=== PATIENT | male | born 1950 | race Two or more races ===

== ENCOUNTER 2017-08-13 20:23 | Inpatient (IN) | payer MEDICARE, OTHER ==
[~2017-08-13] VITALS: Ht 182.9 cm; Wt 133.8 kg
[2017-08-13 20:40] VITALS: BP 147/74
[2017-08-13 20:49] LABS: APPEARANCE,URINE CLEAR; KETONES,URINE NEGATIVE (NEGATIVE); LEUKOCYTE ESTERASE ,URINE 2+ (NEGATIVE); NITRITE,URINE NEGATIVE (NEGATIVE); PH,URINE 8 (4.5-8.0); PROTEIN,URINE NEGATIVE (NEGATIVE); UROBILINOGEN,URINE NORMAL MG/DL (0.0-1.0)
[2017-08-13 20:53] LABS: BACTERIA,URINE FEW /HPF; RBC,URINE 0-2 /HPF (0 - 0)
[2017-08-13 21:15] LABS: TROPONIN I < 0.30 ng/mL (<=0.30)
[2017-08-13 21:18] LABS: ALANINE AMINOTRANSFERASE 24 U/L (3-41); ASPARTATE AMINO TRANSFERASE 39 U/L (5-40); CALCIUM 9.7 mg/dL (8.6-10.2); CARBON DIOXIDE 31 mEQ/L (20-30); CHLORIDE 76 mEQ/L (98-107); GLOMERULAR FILTRATION RATE > 60 mL/min (>60); HEMOLYSIS 7; SODIUM 124 mEQ/L (135-145); TOTAL PROTEIN 8.3 g/dL (6.6-8.7)
[2017-08-13 21:20] LABS: MEAN CORPUSCULAR HEMOGLOBIN 33.6 PG (27.0-31.0); MEAN CORPUSCULAR HGB CONC 35.1 G/DL (32.0-36.0); MEAN CORPUSCULAR VOLUME 96 FL (80-99); MEAN PLATELET VOLUME 7.4 FL (6.5-10.1); PLATELET COUNT 347 K/UL (150-450); RED CELL DISTRIBUTION WIDTH 13.2 % (11.6-14.8)
--- NOTE | 2017-08-13 21:23 | Emergency Room Report ---
History of Present Illness General Chief Complaint: Altered Level of Consciousness Source: Patient, EMS Present Illness HPI 67YOM BIBEMS from home after sister called EMS that patient was altered. I spoke to sister Joy on the phone - she states he "doesnt know when to drink water, doesnt know when to urinate, cant take care of himself, under a strong medication." Patient himself not sure why he is here. Repeatedly trying to leave. States he feels fine. Has no complaints. He is alert and oriented x3. He denies chest pain, SOB, abd pain, urinary complaints, headache, rash Has a bag with all his medication including for HTN, DM, GERD. Allergies: Coded Allergies: No Known Allergies (Unverified , 08/13/17) Patient History Past Medical History: other - see hpi Past Surgical History: none Pertinent Family History: none Social History: Denies: smoking, alcohol use, drug use Immunizations: UTD Reviewed Nursing Documentation: PMH: Agreed, PSxH: Agreed Nursing Documentation-PMH Hx Hypertension: Yes Hx Diabetes: Yes Review of Systems All Other Systems: negative except mentioned in HPI Physical Exam Vital Signs Date Time Temp Pulse Resp B/P (MAP) Pulse Ox O2 Delivery O2 Flow Rate FiO2 08/13/17 20:14 99.0 96 25 152/61 92 Room Air Sp02 EP Interpretation: reviewed, normal General Appearance: normal inspection, well appearing, no apparent distress, alert, GCS 15, non-toxic, obese Head: normocephalic, atraumatic Eyes: bilateral eye PERRL, bilateral eye EOMI ENT: normal ENT inspection, hearing grossly normal, normal voice Neck: normal inspection, full range of motion, supple, no bony tend Respiratory: normal inspection, lungs clear, normal breath sounds, no respiratory distress, no retraction, no accessory muscle use, no wheezing, speaking full sentences Cardiovascular #1: regular rate, rhythm, no edema Gastrointestinal: normal inspection, normal bowel sounds, non tender, soft, no guarding, no hernia Genitourinary: no CVA tenderness Musculoskeletal: normal inspection, back normal, normal range of motion, Melinda' s Sign negative Neurologic: normal inspection, alert, oriented x3, responsive, chief engineer's helper III-XII nml as tested, motor strength/tone normal, speech normal Psychiatric: normal inspection, judgement/insight normal, mood/affect normal Skin: normal inspection, normal color, no rash Lymphatic: normal inspection, no adenopathy Medical Decision Making Medicare Attestation I Azar Pitts MD hereby attest that the medical record entry for date of service, 08/13/17 accurately reflects signatures/notations that I made in my capacity as MD when I treated/diagnosed the above listed Medicare beneficiary. I attest that this information is true, accurate and complete to the best of my knowledge. I understand that any falsification, omission, or concealment of material fact may subject me to administrative, civil, or criminal liability. This patient warrants hospital admission for extreme of age and has a condition that cannot be treated as outpatient. Diagnostic Impression: Primary Impression: Altered level of consciousness Additional Impressions: Hypokalemia Sepsis Qualified Codes: A41.9 - Sepsis, unspecified organism ER Course Utox negative Some bacteria in urine Leuks very elevated. H&h stable. CXR no PNA I doubt meningitis as patient has no focal neuro deficits, no meningismus Blood, Urine Cx pending Abx given HypoK, HypoNa on labs K repleted Patient refused ECG Endorsed for admission to [facility] at 10pm EKG Diagnostic Results Other Impression Patient refused ECG Chest X-Ray Diagnostic Results Chest X-Ray Diagnostic Results : Chest X-Ray Ordered: Yes # of Views/Limited/Complete: 1 View Indication: Other - Sepsis EP Interpretation: Yes Interpretation: no consolidation, no effusion, other - Cardiomegaly Last Vital Signs Date Time Temp Pulse Resp B/P (MAP) Pulse Ox O2 Delivery O2 Flow Rate FiO2 08/13/17 20:40 98.7 90 25 147/74 94 Room Air Status: improved Disposition: ADMITTED INPATIENT Condition: Serious AZAR PITTS M.D. Aug 13, 2017 21:22
[2017-08-13 21:26] LABS: WHITE BLOOD COUNT 27.6 K/UL (4.8-10.8)
[2017-08-13 21:28] LABS: CKMB 3.5 ng/mL (< 6.7)
[2017-08-13] MEDS ORDERED: Haloperidol 5mg/ml Inj IM ONE (21:30)
[2017-08-13] MEDS ORDERED: Cefepime HCl 2 GM in D5W 110 ML IVPB ONE (21:30)
[2017-08-13] MEDS ORDERED: LORazepam Inj 2mg/ml 1ml IM ONE (21:30)
[2017-08-13 21:34] LABS: ANION GAP 17 (5-15)
[2017-08-13 21:37] LABS: POTASSIUM 2.5 mEQ/L (3.4-4.9)
[2017-08-13] MEDS ORDERED: Cefepime 2gm ONE ×2 (21:38→22:06)
[2017-08-13 22:00] LABS: BAND NEUTROPHILS % (MANUAL) 2 % (0-8); LYMPHOCYTES % (MANUAL) 9 % (20-45); NEUTROPHILS % (MANUAL) 86 % (45-75); TOTAL CELLS COUNTED 100
[2017-08-13] MEDS ORDERED: KCl 10% 40mEq/30ml liquid NG ONE (22:00)
[2017-08-13] MEDS ORDERED: KCl 10% 40mEq/30ml liquid ORAL ONE (22:00)
[2017-08-13 22:03] LABS: BASOPHILS % (MANUAL) 0 % (0-2); EOSINOPHILS % (MANUAL) 0 % (0-3); PLATELET ESTIMATE ADEQUATE; PLATELET MORPHOLOGY NORMAL
[2017-08-13 22:39] VITALS: BP 129/71
[2017-08-13 23:45] VITALS: BP 127/64
[2017-08-13] MEDS ORDERED: Miralax 17gm pkt ORAL PRN (23:45)
[2017-08-13] MEDS ORDERED: Albuterol/Ipratropium 3ml neb HHN PRN (23:45)
[2017-08-13] MEDS ORDERED: Morphine Sulfate 2mg/ml Inj IVP PRN (23:45)
[2017-08-13] MEDS ORDERED: SIMVASTATIN40 MG ORAL (23:52)
[2017-08-13] MEDS ORDERED: ENALAPRIL MALEA10 MG ORAL (23:52)
[2017-08-13] MEDS ORDERED: NEXIUM40 MG ORAL (23:52)
[2017-08-13] MEDS ORDERED: MECLIZINE HCL12.5 MG ORAL (23:52)
[2017-08-13] MEDS ORDERED: ALLOPURINOL300 M1 ORAL (23:52)
[2017-08-13] MEDS ORDERED: AMLODIPINE-VAL1 EACH PO (23:52)
[2017-08-13] MEDS ORDERED: GABAPENTIN300 MG ORAL (23:52)
[2017-08-13] MEDS ORDERED: POTASSIUM CHLO20 ME3 PO (23:52)
[2017-08-13] MEDS ORDERED: METFORMIN HCL1000 M1 ORAL (23:52)
[2017-08-13] MEDS ORDERED: FUROSEMIDE80 M1 ORAL (23:52)
[2017-08-13] MEDS ORDERED: VITAMIN D1000 UNI1 ORAL (23:52)
[2017-08-13] MEDS ORDERED: BUMETANIDE2 MG ORAL (23:52)
[2017-08-13] MEDS ORDERED: ATORVASTATIN CA40 MG ORAL (23:52)
[2017-08-13] MEDS ORDERED: TRAZODONE HCL150 MG ORAL (23:52)
[2017-08-13] MEDS ORDERED: CREON DR 36,001 EACH PO (23:52)
[2017-08-13] MEDS ORDERED: QSYMIA 7.5 MG-1 EACH PO (23:52)
[2017-08-14] MEDS ORDERED: Vancomycin 1 GM in D5W 275 ML IV SCH (00:30)
[2017-08-14 01:10] VITALS: BP 130/73
[2017-08-14] MEDS ORDERED: Vancomycin 1gm inj IVPB ONE (01:31)
[2017-08-14] MEDS ORDERED: LORazepam Inj 2mg/ml 1ml IV PRN (01:45)
[2017-08-14] MEDS ORDERED: Vancomycin 2gm/D5W 550ml IVPB ONE ×2 (02:00)
[2017-08-14] MEDS ORDERED: Haloperidol Decanoate 50mg Inj IM PRN (05:30)
[2017-08-14] MEDS ORDERED: Haloperidol 5mg/ml Inj IM PRN (07:30)
[2017-08-14 07:44] VITALS: BP 131/75
[2017-08-14] MEDS: Heparin 5000 units/ml inj SUBQ SCH ×2 (09:07→20:33)
[2017-08-14] MEDS: Cefepime HCl 2 GM in D5W 110 ML IV SCH ×2 (09:08→20:22)
[2017-08-14 09:48] LABS: MEAN CORPUSCULAR HEMOGLOBIN 31.9 PG (27.0-31.0); MEAN CORPUSCULAR HGB CONC 33.2 G/DL (32.0-36.0); MEAN CORPUSCULAR VOLUME 96 FL (80-99); MEAN PLATELET VOLUME 7.6 FL (6.5-10.1); PLATELET COUNT 321 K/UL (150-450); RED BLOOD COUNT 4.27 M/UL (4.70-6.10); RED CELL DISTRIBUTION WIDTH 13.1 % (11.6-14.8)
[2017-08-14 09:50] LABS: WHITE BLOOD COUNT 27.6 K/UL (4.8-10.8)
[2017-08-14] MEDS ORDERED: Vancomycin 1 GM in D5W 275 ML IVPB SCH (10:00)
[2017-08-14 10:11] LABS: ALANINE AMINOTRANSFERASE 22 U/L (3-41); ALBUMIN/GLOBULIN RATIO 1.1 (1.0-2.7); ASPARTATE AMINO TRANSFERASE 39 U/L (5-40); CALCIUM 9.4 mg/dL (8.6-10.2); CARBON DIOXIDE 29 mEQ/L (20-30); CHLORIDE 79 mEQ/L (98-107); GLOMERULAR FILTRATION RATE > 60 mL/min (>60); HEMOLYSIS 0; SODIUM 126 mEQ/L (135-145); TOTAL PROTEIN 7.7 g/dL (6.6-8.7)
[2017-08-14 10:16] LABS: ANION GAP 18 (5-15)
[2017-08-14 10:18] LABS: POTASSIUM 2.5 mEQ/L (3.4-4.9)
[2017-08-14 10:20] LABS: BAND NEUTROPHILS % (MANUAL) 0 % (0-8); BASOPHILS % (MANUAL) 0 % (0-2); EOSINOPHILS % (MANUAL) 0 % (0-3); LYMPHOCYTES % (MANUAL) 9 % (20-45); NEUTROPHILS % (MANUAL) 85 % (45-75); PLATELET ESTIMATE ADEQUATE; PLATELET MORPHOLOGY NORMAL; TOTAL CELLS COUNTED 100
--- NOTE | 2017-08-14 11:31 | Diagnostic Imaging Report ---
Indication: Dyspnea Comparison: None A single view chest radiograph was obtained. Findings: The heart is enlarged. There is pulmonary vascular prominence and interstitial edema. Bones are osteopenic. Impression: Interstitial edema/CHF
[2017-08-14 11:48] VITALS: BP 126/68
--- NOTE | 2017-08-14 14:25 | Consultation ---
Consult Note Consult Note 67YOM BIBEMS from home after sister called EMS that patient was altered. I spoke to sister Joy on the phone - she states he "doesnt know when to drink water, doesnt know when to urinate, cant take care of himself, under a strong medication." Patient himself not sure why he is here. Repeatedly trying to leave. States he feels fine. Has no complaints. He is alert and oriented x3. He denies chest pain, SOB, abd pain, urinary complaints, headache, rash Has a bag with all his medication including for HTN, DM, GERD. Hx Hypertension: Yes Hx Diabetes: Yes Interviewed- examined data reviewed discussed with insole and heel stiffener/Plan Water intoxication? leading to low NA Lasix , leading to low Na and K HypoKalemia due to Lasix DM HTN Obesity Leukocytosis , etiology?? High Cholestrol HyperUrecemia 3% Saline- PO KCL PO Protonix Avoid nephrotoxics resume glucophage on medium CHO diet per orders MAIN MCMAHAN Aug 14, 2017 14:25
[2017-08-14 15:36] VITALS: BP 134/72
[2017-08-14] MEDS ORDERED: NaCl 3% 500ml 500 ML IV ONE (16:00)
--- NOTE | 2017-08-14 16:11 | Consultation ---
Consult Note Consult Note ID DIC # [id number] DEBBI ROSENBAUM M.D. Aug 14, 2017 16:11
[2017-08-14] MEDS: metFORMIN 500mg tab ORAL SCH (17:38)
[2017-08-14] MEDS: metroNIDAZOLE 500mg tab ORAL SCH (17:55)
[2017-08-14 20:00] VITALS: BP 148/73
--- NOTE | 2017-08-14 22:02 | History and Physical ---
History of Present Illness General Date patient seen: Aug 14, 2017 Reason for Hospitalization: Altered Level of Consciousness Present Illness HPI 67 year old male with hx o fHTN, DM, GERD from home brought in by paramedics after sister called EMS that patient was altered. the sister stated- she states he "doesnt know when to drink water, doesn't know when to urinate, cant take care of himself, under a strong medication." He is alert and oriented x3.. He denied chest pain, SOB, abd pain, urinary complaints, headache, rash He was found to have severe leukocytosis and admitted for further work up. Allergies: Coded Allergies: No Known Allergies (Unverified , 08/13/17) Medication History Scheduled Allopurinol* (Allopurinol*), 300 MG ORAL DAILY, (Reported) Atorvastatin Calcium* (Atorvastatin Calcium*), 40 MG ORAL BEDTIME, (Reported) Bumetanide* (Bumetanide*), 2 MG ORAL DAILY, (Reported) Cholecalciferol (Vitamin D3)* (Vitamin D*), 1,000 UNITS ORAL DAILY, (Reported) Enalapril Maleate* (Enalapril Maleate*), 10 MG ORAL EVERY 12 HOURS, (Reported) Esomeprazole Magnesium (Nexium), 40 MG ORAL DAILY, (Reported) Furosemide* (Lasix*), 80 MG ORAL DAILY, (Reported) Gabapentin* (Gabapentin*), 300 MG ORAL BID, (Reported) Meclizine Hcl* (Meclizine*), 12.5 MG ORAL BEDTIME, (Reported) Metformin Hcl* (Metformin Hcl*), 1,000 MG ORAL DAILY, (Reported) Simvastatin (Zocor), 40 MG ORAL BEDTIME, (Reported) Trazodone* (Trazodone*), 50 MG ORAL BEDTIME, (Reported) Miscellaneous Medications Amlodipine/Valsartan (Amlodipine-Valsartan 5-160 mg), 1 EACH PO, (Reported) Lipase/Protease/Amylase (Creon Dr 36,000 Units Capsule), 1 EACH PO, (Reported) Phentermine/Topiramate (Qsymia 7.5 Mg-46 Mg Capsule), 1 EACH PO, (Reported) Potassium Chloride (Potassium Chloride), 20 MEQ PO, (Reported) Patient History Healthcare decision maker Resuscitation status Full Code Advanced Directive on File Past Medical/Surgical History Past Medical/Surgical History: (1) HTN (hypertension) (2) Diabetes Review of Systems All Other Systems: negative except mentioned in HPI Physical Exam General Appearance: WD/WN Lines, tubes and drains: peripheral HEENT: normocephalic, atraumatic Neck: non-tender, normal alignment Respiratory/Chest: chest wall non-tender, lungs clear Cardiovascular/Chest: normal peripheral pulses Abdomen: non tender Genitourinary/Rectal: normal genital exam Extremities: normal range of motion Last 24 Hour Vital Signs Date Time Temp Pulse Resp B/P (MAP) Pulse Ox O2 Delivery O2 Flow Rate FiO2 08/14/17 20:00 98.6 68 22 148/73 96 Room Air 08/14/17 15:36 98.3 91 22 134/72 100 Room Air 08/14/17 11:48 97.9 100 21 126/68 100 Room Air 08/14/17 07:44 98.4 89 22 131/75 96 Room Air 08/14/17 07:30 80 16 Room Air 21 08/14/17 01:10 100.9 83 22 130/73 96 Room Air 08/14/17 00:00 91 33 121/74 95 Room Air 08/13/17 23:45 98.9 81 21 127/64 94 Room Air 08/13/17 22:39 98.2 87 32 129/71 91 Room Air Intake and Output 08/14/17 08/15/17 19:00 07:00 Intake Total 420 ml Output Total 1200 ml Balance -780 ml Intake Oral 420 ml Output Urine Total 1200 ml # Voids 7 Laboratory Tests Test 08/14/17 09:10 08/14/17 14:45 White Blood Count 27.6 K/UL (4.8-10.8) *H Red Blood Count 4.27 M/UL (4.70-6.10) L Hemoglobin 13.6 G/DL (14.2-18.0) L Hematocrit 41.0 % (42.0-52.0) L Mean Corpuscular Volume 96 FL (80-99) Mean Corpuscular Hemoglobin 31.9 PG (27.0-31.0) H Mean Corpuscular Hemoglobin Concent 33.2 G/DL (32.0-36.0) Red Cell Distribution Width 13.1 % (11.6-14.8) Platelet Count 321 K/UL (150-450) Mean Platelet Volume 7.6 FL (6.5-10.1) Neutrophils (%) (Auto) % (45.0-75.0) Lymphocytes (%) (Auto) % (20.0-45.0) Monocytes (%) (Auto) % (1.0-10.0) Eosinophils (%) (Auto) % (0.0-3.0) Basophils (%) (Auto) % (0.0-2.0) Differential Total Cells Counted 100 Neutrophils % (Manual) 85 % (45-75) H Lymphocytes % (Manual) 9 % (20-45) L Monocytes % (Manual) 6 % (1-10) Eosinophils % (Manual) 0 % (0-3) Basophils % (Manual) 0 % (0-2) Band Neutrophils 0 % (0-8) Platelet Estimate Adequate Platelet Morphology Normal Red Blood Cell Morphology Normal Sodium Level 126 mEQ/L (135-145) L Potassium Level 2.5 mEQ/L (3.4-4.9) *L Chloride Level 79 mEQ/L (98-107) L Carbon Dioxide Level 29 mEQ/L (20-30) Anion Gap 18 (5-15) H Blood Urea Nitrogen 12 mg/dL (7-23) Creatinine 1.0 mg/dL (0.7-1.2) Estimat Glomerular Filtration Rate > 60 mL/min (>60) Glucose Level 198 mg/dL (74-106) H Calcium Level 9.4 mg/dL (8.6-10.2) Total Bilirubin 0.8 mg/dL (0.0-1.2) Aspartate Amino Transf (AST/SGOT) 39 U/L (5-40) Alanine Aminotransferase (ALT/SGPT) 22 U/L (3-41) Alkaline Phosphatase 123 U/L (40-129) Total Protein 7.7 g/dL (6.6-8.7) Albumin 4.1 g/dL (3.5-5.2) Globulin 3.6 g/dL Albumin/Globulin Ratio 1.1 (1.0-2.7) Urine Osmolality 441 mOsm/kg (429-449) Urine Random Sodium 15 mmol/L Height (Feet): 6 Height (Inches): 0.00 Weight (Pounds): 295 Medications Current Medications Medications (Trade) Dose Ordered Sig/Elle Route PRN Reason Start Time Stop Time Status Last Admin Dose Admin Acetaminophen (Tylenol) 650 mg Q4H PRN ORAL fever 08/13/17 23:45 09/12/17 23:44 Albuterol/ Ipratropium (DuoNeb 0.5-3(2.5)mg/3ml) 3 ml Q4H PRN HHN Shortness of Breath 08/13/17 23:45 08/18/17 23:44 Cefepime HCl 2 gm/ Dextrose 110 ml @ 220 mls/hr Q12HR IV 08/14/17 09:00 08/21/17 08:59 08/14/17 20:22 Haloperidol Lactate (Haldol) 5 mg Q4H PRN IM Agitation 08/14/17 07:30 09/13/17 07:29 Heparin Sodium (Porcine) (Heparin 5000 units/ml) 5,000 units EVERY 12 HOURS SUBQ 08/14/17 09:00 09/13/17 08:59 08/14/17 20:33 Lorazepam (Ativan 2mg/ml 1ml) 1 mg Q4H PRN IV For Anxiety 08/14/17 01:45 08/21/17 01:44 Metformin HCl (Glucophage) 500 mg TIAC ORAL 08/14/17 16:30 09/13/17 16:29 08/14/17 17:38 Metronidazole (Flagyl) 500 mg Q8HR ORAL 08/14/17 18:00 08/21/17 17:59 08/14/17 17:55 Morphine Sulfate (Morphine Sulfate) 2 mg Q4H PRN IVP Moderate Pain (Pain Scale 4-6) 08/13/17 23:45 08/20/17 23:44 Ondansetron HCl (Zofran) 4 mg Q6H PRN IVP Nausea & Vomiting 08/13/17 23:45 09/12/17 23:44 Pantoprazole (Protonix) 40 mg EVERY 12 HOURS ORAL 08/14/17 15:00 09/13/17 14:59 08/14/17 15:07 Phenazopyridine HCl (Pyridium) 100 mg DAILY PRN ORAL dysuria 08/13/17 23:45 09/12/17 23:44 Polyethylene Glycol (Miralax) 17 gm DAILYPRN PRN ORAL Constipation 08/13/17 23:45 09/12/17 23:44 Potassium Chloride (K-Dur) 40 meq Q4H ORAL 08/14/17 15:00 08/15/17 07:01 08/14/17 17:56 Sodium Chloride 500 ml @ 30 mls/hr ONCE ONCE IV 08/14/17 16:00 08/15/17 08:39 08/14/17 17:39 Temazepam (Restoril) 15 mg HSPRN PRN ORAL Insomnia 08/13/17 23:45 08/20/17 23:44 Vitamin D (Vitamin D) 1,000 intlu DAILY ORAL 08/15/17 09:00 09/14/17 08:59 Assessment/Plan Problem List: (1) Sepsis ICD Codes: A41.9 - Sepsis, unspecified organism SNOMED: 99446666 Qualifiers: Qualified Codes: A41.9 - Sepsis, unspecified organism (2) Altered level of consciousness ICD Codes: R40.4 - Transient alteration of awareness SNOMED: 9667932 (3) Diabetes ICD Codes: E11.9 - Type 2 diabetes mellitus without complications SNOMED: 14214643 (4) HTN (hypertension) ICD Codes: I10 - Essential (primary) hypertension SNOMED: 16327271 Assessment/Plan panculture IV abx f/u wbc check electrolytes dvt prophylaxis sliding scale TETO SMITH Aug 14, 2017 22:02
[2017-08-15] VITALS: BP 136/87
--- NOTE | 2017-08-15 02:30 | Consultation ---
DATE OF CONSULTATION: 08/14/2017 INFECTIOUS DISEASE CONSULTATION CONSULTING PHYSICIAN: Ming Mitchell M.D. REFERRING PHYSICIAN: Octavio Lawson M.D. Reason For Consultation: Evaluation of the patient for fever, leukocytosis, and antibiotic management. History Of Present Illness: The patient is a 67-year-old male with multiple medical problems as listed below, who is overall a poor historian, was admitted to this medical center due to altered level of consciousness. The patient was found to be confused and labs showed the patient had abnormal electrolytes. The patient also was found to have leukocytosis and low-grade fever, and Infectious Disease consultation has been requested for further evaluation of the patient and antibiotic management. PAST MEDICAL HISTORY: 1. Hyperlipidemia. 2. Hypertension. 3. GERD. 4. Diabetes. MEDICATIONS: IV vancomycin and cefepime. ALLERGIES: No known drug allergies. SOCIAL HISTORY: The patient lives at home. FAMILY HISTORY: Noncontributory. Review Of Systems: The patient overall is a poor historian. Much of the information I was able to gather is as mentioned above. PHYSICAL EXAMINATION: Vital Signs: Temperature 98 degrees, blood pressure 154/72, pulse 86, respiratory rate 18, and T-max 100.9 degrees. HEENT: Mild pale conjunctiva. No icterus. NECK: No lymphadenopathy. CHEST: Clear. HEART: S1 and S2. ABDOMEN: Soft and obese. EXTREMITIES: No cyanosis. NEUROLOGIC: Awake and alert. Laboratory Data: White blood cells 27, hemoglobin 13, and platelets 321,000. UA unremarkable. BUN 12 and creatinine 0.1. Liver function tests are unremarkable. Chest x-ray, interstitial edema and CHF. Assessment: The patient is a 67-year-old male with multiple medical problems, as listed above, who is admitted due to: 1. Altered level of consciousness. 2. Leukocytosis, probably due to acute stress. 3. Low-grade fever, possible aspiration pneumonia. 4. Hypokalemia and hyponatremia. PLAN: 1. We will continue the patient on cefepime. 2. We will add Flagyl. 3. We will hold vancomycin. 4. Monitor CBC. 5. Monitor BMP. 6. Monitor cultures (blood and urine). 7. Monitor chest x-ray. 8. Based on the patient's clinical course and labs, we will do further recommendations. Thank you, Dr. Lawson, for allowing me to participate in the care of this patient. I will follow the patient with you during this hospitalization. Ming Mitchell M.D. DR: YOLI JOB#: [id number] CC:
[2017-08-15 04:00] VITALS: BP 126/73
[2017-08-15] MEDS: metroNIDAZOLE 500mg tab ORAL SCH ×3 (06:20→21:37)
[2017-08-15] MEDS: metFORMIN 500mg tab ORAL SCH ×3 (06:20→17:13)
[2017-08-15 07:41] VITALS: BP 135/71
[2017-08-15 08:15] LABS: MEAN CORPUSCULAR HEMOGLOBIN 32.5 PG (27.0-31.0); MEAN CORPUSCULAR HGB CONC 33.7 G/DL (32.0-36.0); MEAN CORPUSCULAR VOLUME 96 FL (80-99); MEAN PLATELET VOLUME 8.1 FL (6.5-10.1); PLATELET COUNT 287 K/UL (150-450); RED BLOOD COUNT 4.03 M/UL (4.70-6.10); WHITE BLOOD COUNT 21.8 K/UL (4.8-10.8)
[2017-08-15 08:25] LABS: ALANINE AMINOTRANSFERASE 19 U/L (3-41); ALBUMIN/GLOBULIN RATIO 0.8 (1.0-2.7); ANION GAP 14 (5-15); ASPARTATE AMINO TRANSFERASE 33 U/L (5-40); CALCIUM 9.1 mg/dL (8.6-10.2); CARBON DIOXIDE 29 mEQ/L (20-30); CHLORIDE 84 mEQ/L (98-107); CHOLESTEROL 161 mg/dL (< 200); CHOLESTEROL/HDL RATIO 4.2 (3.3-4.4); CREATININE 0.8 mg/dL (0.7-1.2); CRP QUANT 28.2 mg/dL (< 0.5); GLOMERULAR FILTRATION RATE > 60 mL/min (>60); HEMOLYSIS 0; LDL CHOLESTEROL CALC 105 mg/dL (60-99); LIPASE 22 U/L (< 60); PHOSPHORUS 1.7 mg/dL (2.5-4.8); POTASSIUM 3.1 mEQ/L (3.4-4.9); SODIUM 127 mEQ/L (135-145); TOTAL PROTEIN 7.4 g/dL (6.6-8.7)
[2017-08-15 08:39] LABS: FERRITIN 433 ng/mL (10-230)
[2017-08-15] MEDS: Vitamin D 1000 IU Tab ORAL SCH (08:55)
[2017-08-15] MEDS: Heparin 5000 units/ml inj SUBQ SCH ×2 (09:01→20:34)
[2017-08-15 09:14] LABS: HEMOGLOBIN A1C 6.3 % (< 6.0)
[2017-08-15] MEDS ORDERED: Potassium Phosphate 30 MM in Sodium Chloride 500ML 550 ML IV ONE (09:30)
[2017-08-15] MEDS ORDERED: NaCl 3% 500ml 500 ML IV ONE ×2 (09:30→17:00)
[2017-08-15 09:51] LABS: BAND NEUTROPHILS % (MANUAL) 0 % (0-8); BASOPHILS % (MANUAL) 0 % (0-2); EOSINOPHILS % (MANUAL) 0 % (0-3); LYMPHOCYTES % (MANUAL) 16 % (20-45); NEUTROPHILS % (MANUAL) 79 % (45-75); PLATELET ESTIMATE ADEQUATE; PLATELET MORPHOLOGY NORMAL; TOTAL CELLS COUNTED 100
[2017-08-15 10:01] LABS: OTHERS PATHOLOGIST COMMENT
[2017-08-15] MEDS: Cefepime HCl 2 GM in D5W 110 ML IV SCH ×2 (10:52→20:25)
--- NOTE | 2017-08-15 11:50 | General Progress Note ---
Assessment/Plan Status: stable Assessment/Plan Low Na , ? depletional Lasix , leading to low Na and K HypoKalemia due to Lasix DM HTN Obesity Leukocytosis , etiology?? High Cholestrol HyperUrecemia UTI 3% Saline- again IV K Phos PO Protonix Avoid nephrotoxics resume glucophage on medium CHO diet start on flomax per orders Subjective ROS Limited/Unobtainable: No Constitutional: Reports: other - stronger- more responsive- Allergies: Coded Allergies: No Known Allergies (Unverified , 08/13/17) Objective Last 24 Hour Vital Signs Date Time Temp Pulse Resp B/P (MAP) Pulse Ox O2 Delivery O2 Flow Rate FiO2 08/15/17 08:15 73 16 Room Air 21 08/15/17 07:41 97.7 74 20 135/71 99 Room Air 08/15/17 04:00 98.2 73 22 126/73 100 Room Air 08/15/17 00:00 98.4 68 22 136/87 100 Room Air 08/14/17 21:55 84 16 Room Air 21 08/14/17 20:00 98.6 68 22 148/73 96 Room Air 08/14/17 15:36 98.3 91 22 134/72 100 Room Air 08/14/17 11:48 97.9 100 21 126/68 100 Room Air Laboratory Tests 08/14/17 14:45: Urine Osmolality 441, Urine Random Sodium 15 08/15/17 07:50: White Blood Count 21.8H, Red Blood Count 4.03L, Hemoglobin 13.1L, Hematocrit 38.9L, Mean Corpuscular Volume 96, Mean Corpuscular Hemoglobin 32.5H, Mean Corpuscular Hemoglobin Concent 33.7, Red Cell Distribution Width 13.0, Platelet Count 287, Mean Platelet Volume 8.1, Neutrophils (%) (Auto) , Lymphocytes (%) ( Auto) , Monocytes (%) (Auto) , Eosinophils (%) (Auto) , Basophils (%) (Auto) , Differential Total Cells Counted 100, Neutrophils % (Manual) 79H, Lymphocytes % (Manual) 16L, Monocytes % (Manual) 5, Eosinophils % (Manual) 0, Basophils % ( Manual) 0, Band Neutrophils 0, Platelet Estimate Adequate, Platelet Morphology Normal, Sodium Level 127L, Potassium Level 3.1L, Chloride Level 84L, Carbon Dioxide Level 29, Anion Gap 14, Blood Urea Nitrogen 13, Creatinine 0.8, Estimat Glomerular Filtration Rate > 60, Glucose Level 132H, Hemoglobin A1c 6.3H, Uric Acid 7.0, Calcium Level 9.1, Phosphorus Level 1.7L, Magnesium Level 2.0, Ferritin 433H, Total Bilirubin 0.5, Gamma Glutamyl Transpeptidase 62H, Aspartate Amino Transf (AST/SGOT) 33, Alanine Aminotransferase (ALT/SGPT) 19, Alkaline Phosphatase 103, Total Creatine Kinase 362H, C-Reactive Protein, Quantitative 28.2H, Pro-B-Type Natriuretic Peptide 231H, Total Protein 7.4, Albumin 3.5, Globulin 3.9, Albumin/Globulin Ratio 0.8L, Triglycerides Level 91, Cholesterol Level 161, LDL Cholesterol 105H, HDL Cholesterol 38, Cholesterol/ HDL Ratio 4.2, Lipase 22, Vitamin B12 Level > 2000H, Folate [Pending], Thyroid Stimulating Hormone (TSH) 3.270 Height (Feet): 6 Height (Inches): 0.00 Weight (Pounds): 295 General Appearance: no apparent distress, lethargic Cardiovascular: normal rate Respiratory/Chest: decreased breath sounds Abdomen: soft, other - obese Edema: 1+ Arm (L), 1+ Arm (R), 1+ Leg (L), 1+ Leg (R), 1+ Pedal (L), 1+ Pedal ( R), 1+ Generalized Objective no other changes MAIN MCMAHAN Aug 15, 2017 11:50
[2017-08-15] MEDS: Tamsulosin 0.4mg cap ORAL SCH ×2 (12:01→17:13)
[2017-08-15 12:02] VITALS: BP 118/74
--- NOTE | 2017-08-15 15:39 | Cardiology Report ---
APPROVED REPORT EXAM: Two-dimensional and M-mode echocardiogram with Doppler and color Doppler. INDICATION Congestive Heart Failure M-Mode DIMENSIONS IVSd1.1 (0.7-1.1cm)Left Atrium (MM)4.4 (1.6-4.0cm) LVDd5.6 (3.5-5.6cm)Aortic Root3.4 (2.0-3.7cm) PWd1.1 (0.7-1.1cm)Aortic Cusp Exc.2.0 (1.5-2.0cm) LVDs5.3 (2.5-4.0cm) PWs0.8 cm Technically difficult study due to poor acoustic windows and patient body habitus. Normal left ventricular chamber size, systolic function and wall motion to extent visualized. Left ventricular ejection fraction estimated to be 55 %. No evidence of left ventricular hypertrophy. Anterior Echo-free space, may be due to pericardial fat or effusion. All other cardiac chamber sizes are within normal limits. Mild focal aortic valve sclerosis with adequate cusp excursion. Mildly thickened mitral valve leaflets with normal excursion. Mild mitral annulus and aortic root calcification. Pulmonic valve not well visualized. Tricuspid valve not well visualized Subcostal views not obtained. A color flow and spectral Doppler study was performed and revealed: No aortic insufficiency. No mitral regurgitation. Mitral inflow indicate normal left ventricular diastolic function. No tricuspid regurgitation. Tricuspid systolic velocities suggests peak right ventricular systolic pressure of 10 mmHg. Trace pulmonic regurgitation present.
[2017-08-15 15:44] VITALS: BP 117/78
--- NOTE | 2017-08-15 15:59 | Pulmonology Progress Note ---
Assessment/Plan Problems: (1) Sepsis (2) Altered level of consciousness (3) Diabetes (4) HTN (hypertension) Assessment/Plan f/u blood culture results wbc decreasing f/u Na f/u renal and ID recommendations Subjective ROS Limited/Unobtainable: No Constitutional: Reports: no symptoms HEENT: Repors: no symptoms Respiratory: Reports: no symptoms Allergies: Coded Allergies: No Known Allergies (Unverified , 08/13/17) Objective Last 24 Hour Vital Signs Date Time Temp Pulse Resp B/P (MAP) Pulse Ox O2 Delivery O2 Flow Rate FiO2 08/15/17 15:44 97.8 78 19 117/78 97 Room Air 08/15/17 12:02 98.4 67 19 118/74 Room Air 08/15/17 08:15 73 16 Room Air 21 08/15/17 07:41 97.7 74 20 135/71 99 Room Air 08/15/17 04:00 98.2 73 22 126/73 100 Room Air 08/15/17 00:00 98.4 68 22 136/87 100 Room Air 08/14/17 21:55 84 16 Room Air 21 08/14/17 20:00 98.6 68 22 148/73 96 Room Air Intake and Output 08/15/17 08/16/17 19:00 07:00 Intake Total 966.666 ml Output Total 1150 ml Balance -183.334 ml Intake Oral 560 ml IV Total 406.666 ml Output Urine Total 1150 ml General Appearance: WD/WN HEENT: normocephalic, atraumatic Respiratory/Chest: chest wall non-tender, lungs clear Abdomen: soft, non tender, no organomegaly Genitourinary: normal external genitalia Extremities: no clubbing Skin: no lesions, no ulcers Microbiology Date/Time Source Procedure Growth Status 08/13/17 21:45 Blood Blood Culture - Preliminary Resulted 08/13/17 21:25 Blood Blood Culture - Preliminary Resulted 08/14/17 14:45 Indwelling Cath Urine Culture - Preliminary NO GROWTH Resulted 08/13/17 20:23 Urine,Catheterized Urine Culture - Preliminary Gram Negative Bacillus 1 Resulted Laboratory Tests 08/15/17 07:50: White Blood Count 21.8H, Red Blood Count 4.03L, Hemoglobin 13.1L, Hematocrit 38.9L, Mean Corpuscular Volume 96, Mean Corpuscular Hemoglobin 32.5H, Mean Corpuscular Hemoglobin Concent 33.7, Red Cell Distribution Width 13.0, Platelet Count 287, Mean Platelet Volume 8.1, Neutrophils (%) (Auto) , Lymphocytes (%) ( Auto) , Monocytes (%) (Auto) , Eosinophils (%) (Auto) , Basophils (%) (Auto) , Differential Total Cells Counted 100, Neutrophils % (Manual) 79H, Lymphocytes % (Manual) 16L, Monocytes % (Manual) 5, Eosinophils % (Manual) 0, Basophils % ( Manual) 0, Band Neutrophils 0, Platelet Estimate Adequate, Platelet Morphology Normal, Sodium Level 127L, Potassium Level 3.1L, Chloride Level 84L, Carbon Dioxide Level 29, Anion Gap 14, Blood Urea Nitrogen 13, Creatinine 0.8, Estimat Glomerular Filtration Rate > 60, Glucose Level 132H, Hemoglobin A1c 6.3H, Uric Acid 7.0, Calcium Level 9.1, Phosphorus Level 1.7L, Magnesium Level 2.0, Ferritin 433H, Total Bilirubin 0.5, Gamma Glutamyl Transpeptidase 62H, Aspartate Amino Transf (AST/SGOT) 33, Alanine Aminotransferase (ALT/SGPT) 19, Alkaline Phosphatase 103, Total Creatine Kinase 362H, C-Reactive Protein, Quantitative 28.2H, Pro-B-Type Natriuretic Peptide 231H, Total Protein 7.4, Albumin 3.5, Globulin 3.9, Albumin/Globulin Ratio 0.8L, Triglycerides Level 91, Cholesterol Level 161, LDL Cholesterol 105H, HDL Cholesterol 38, Cholesterol/ HDL Ratio 4.2, Lipase 22, Vitamin B12 Level > 2000H, Folate [Pending], Thyroid Stimulating Hormone (TSH) 3.270 Current Medications Medications (Trade) Dose Ordered Sig/Elle Route PRN Reason Start Time Stop Time Status Last Admin Dose Admin Acetaminophen (Tylenol) 650 mg Q4H PRN ORAL fever 08/13/17 23:45 09/12/17 23:44 08/14/17 22:15 Albuterol/ Ipratropium (DuoNeb 0.5-3(2.5)mg/3ml) 3 ml Q4H PRN HHN Shortness of Breath 08/13/17 23:45 08/18/17 23:44 Cefepime HCl 2 gm/ Dextrose 110 ml @ 220 mls/hr Q12HR IV 08/14/17 09:00 08/21/17 08:59 08/15/17 10:52 Gabapentin (Neurontin) 300 mg BID ORAL 08/15/17 18:00 09/14/17 17:59 UNV Heparin Sodium (Porcine) (Heparin 5000 units/ml) 5,000 units EVERY 12 HOURS SUBQ 08/14/17 09:00 09/13/17 08:59 08/15/17 09:01 Lorazepam (Ativan 2mg/ml 1ml) 1 mg Q4H PRN IV For Anxiety 08/14/17 01:45 08/21/17 01:44 Metformin HCl (Glucophage) 500 mg TIAC ORAL 08/14/17 16:30 09/13/17 16:29 08/15/17 12:01 Metronidazole (Flagyl) 500 mg Q8HR ORAL 08/14/17 18:00 08/21/17 17:59 08/15/17 14:05 Morphine Sulfate (Morphine Sulfate) 2 mg Q4H PRN IVP Moderate Pain (Pain Scale 4-6) 08/13/17 23:45 08/20/17 23:44 Ondansetron HCl (Zofran) 4 mg Q6H PRN IVP Nausea & Vomiting 08/13/17 23:45 09/12/17 23:44 Pantoprazole (Protonix) 40 mg EVERY 12 HOURS ORAL 08/14/17 15:00 09/13/17 14:59 08/15/17 08:55 Phenazopyridine HCl (Pyridium) 100 mg DAILY PRN ORAL dysuria 08/13/17 23:45 09/12/17 23:44 Polyethylene Glycol (Miralax) 17 gm DAILYPRN PRN ORAL Constipation 08/13/17 23:45 09/12/17 23:44 Sodium Chloride 500 ml @ 30 mls/hr ONCE ONCE IV 08/15/17 17:00 08/16/17 09:39 Tamsulosin HCl (Flomax) 0.4 mg BID ORAL 08/15/17 12:00 09/14/17 11:59 08/15/17 12:01 Temazepam (Restoril) 15 mg HSPRN PRN ORAL Insomnia 08/13/17 23:45 08/20/17 23:44 Vitamin D (Vitamin D) 1,000 intlu DAILY ORAL 08/15/17 09:00 09/14/17 08:59 08/15/17 08:55 TETO SMITH Aug 15, 2017 15:59
--- NOTE | 2017-08-15 16:22 | Physician Query ---
PLEASE COMPLETE DOCUMENT BEFORE SIGNING Dear Dr. Octavio Lawson Date: July Data Operations Leader/CDS Name: JOAO Fonseca Data Operations Leader / CDS Exercise your independent professional judgment when responding to query. Question asked do not imply a particular answer is desired/expected. Clinical Documentation States: " Altered Level Of Consciousness" documented in Assessment notes of Dr. Lawson. Clinical Findings Show: Potassium= 2.5, 2.5, 3.1 Sodium= 124,126,127 WBC= 27.6, 27.6, 21.8 Please indicate the nature and chronicity of the condition below: [x] Metabolic Encephalopathy [] Toxic Encephalopathy [] Toxic - Metabolic Encephalopathy [] Progressive Encephalopathy [] Encephalopathy, Other [] Other: [] Not Applicable Severity [x] Acute [] Chronic [] Acute on Chronic [] Unable to determine Condition Present on Admission: [x] Yes [] No []Clinically Undeterminable Please also document in your Progress Notes and/or Discharge Summary and indicate if the condition was present on admission. Octavio Lawson MD Date/Time [facility] [place]
[2017-08-15 19:52] VITALS: BP 124/75
[2017-08-15] MEDS ORDERED: Tubing IV Secondary IV ONE (20:00)
[2017-08-15] MEDS ORDERED: NS 275ml ONE (20:00)
--- NOTE | 2017-08-15 20:33 | Infectious Diseases Prog Note ---
Assessment/Plan Assessment/Plan Assessment: The patient is a 67-year-old male with Altered level of consciousness. Leukocytosis, probably due to acute stress Low-grade fever possible aspiration pneumonia. Bacteremia GPC Probable UTI Ucx: GNR , SP Hypokalemia and hyponatremia Hyperlipidemia. Hypertension. GERD. Diabetes PLAN: continue the patient on cefepime and Flagyl d# 2 , add IV VAnco d# 1 Monitor CBC. Monitor BMP. Monitor cultures (blood and urine). Monitor chest x-ray. Subjective Constitutional: Denies: no symptoms, fever, chills, fatigue, anorexia, drenching sweats, other Allergies: Coded Allergies: No Known Allergies (Unverified , 08/13/17) Objective Vital Signs Last 24 Hour Vital Signs Date Time Temp Pulse Resp B/P (MAP) Pulse Ox O2 Delivery O2 Flow Rate FiO2 08/15/17 20:08 65 18 Room Air 21 08/15/17 19:52 98.2 68 20 124/75 98 Room Air 08/15/17 15:44 97.8 78 19 117/78 97 Room Air 08/15/17 12:02 98.4 67 19 118/74 Room Air 08/15/17 08:15 73 16 Room Air 21 08/15/17 07:41 97.7 74 20 135/71 99 Room Air 08/15/17 04:00 98.2 73 22 126/73 100 Room Air 08/15/17 00:00 98.4 68 22 136/87 100 Room Air 08/14/17 21:55 84 16 Room Air 21 Height (Feet): 6 Height (Inches): 0.00 Weight (Pounds): 295 HEENT: anicteric Respiratory/Chest: no accessory muscle use Cardiovascular: regularly irregular Abdomen: no organomegaly Microbiology Date/Time Source Procedure Growth Status 08/13/17 21:45 Blood Blood Culture - Preliminary Resulted 08/13/17 21:25 Blood Blood Culture - Preliminary Resulted 08/14/17 14:45 Indwelling Cath Urine Culture - Preliminary NO GROWTH Resulted 08/13/17 20:23 Urine,Catheterized Urine Culture - Preliminary Gram Negative Bacillus 1 Resulted Laboratory Tests Test 08/15/17 07:50 White Blood Count 21.8 K/UL (4.8-10.8) H Red Blood Count 4.03 M/UL (4.70-6.10) L Hemoglobin 13.1 G/DL (14.2-18.0) L Hematocrit 38.9 % (42.0-52.0) L Mean Corpuscular Volume 96 FL (80-99) Mean Corpuscular Hemoglobin 32.5 PG (27.0-31.0) H Mean Corpuscular Hemoglobin Concent 33.7 G/DL (32.0-36.0) Red Cell Distribution Width 13.0 % (11.6-14.8) Platelet Count 287 K/UL (150-450) Mean Platelet Volume 8.1 FL (6.5-10.1) Neutrophils (%) (Auto) % (45.0-75.0) Lymphocytes (%) (Auto) % (20.0-45.0) Monocytes (%) (Auto) % (1.0-10.0) Eosinophils (%) (Auto) % (0.0-3.0) Basophils (%) (Auto) % (0.0-2.0) Differential Total Cells Counted 100 Neutrophils % (Manual) 79 % (45-75) H Lymphocytes % (Manual) 16 % (20-45) L Monocytes % (Manual) 5 % (1-10) Eosinophils % (Manual) 0 % (0-3) Basophils % (Manual) 0 % (0-2) Band Neutrophils 0 % (0-8) Platelet Estimate Adequate Platelet Morphology Normal Sodium Level 127 mEQ/L (135-145) L Potassium Level 3.1 mEQ/L (3.4-4.9) L Chloride Level 84 mEQ/L (98-107) L Carbon Dioxide Level 29 mEQ/L (20-30) Anion Gap 14 (5-15) Blood Urea Nitrogen 13 mg/dL (7-23) Creatinine 0.8 mg/dL (0.7-1.2) Estimat Glomerular Filtration Rate > 60 mL/min (>60) Glucose Level 132 mg/dL (74-106) H Hemoglobin A1c 6.3 % (< 6.0) H Uric Acid 7.0 mg/dL (3.0-7.5) Calcium Level 9.1 mg/dL (8.6-10.2) Phosphorus Level 1.7 mg/dL (2.5-4.8) L Magnesium Level 2.0 mg/dL (1.7-2.5) Ferritin 433 ng/mL (10-230) H Total Bilirubin 0.5 mg/dL (0.0-1.2) Gamma Glutamyl Transpeptidase 62 U/L (8-61) H Aspartate Amino Transf (AST/SGOT) 33 U/L (5-40) Alanine Aminotransferase (ALT/SGPT) 19 U/L (3-41) Alkaline Phosphatase 103 U/L (40-129) Total Creatine Kinase 362 U/L (38-174) H C-Reactive Protein, Quantitative 28.2 mg/dL (< 0.5) H Pro-B-Type Natriuretic Peptide 231 pg/mL (0-125) H Total Protein 7.4 g/dL (6.6-8.7) Albumin 3.5 g/dL (3.5-5.2) Globulin 3.9 g/dL Albumin/Globulin Ratio 0.8 (1.0-2.7) L Triglycerides Level 91 mg/dL (< 150) Cholesterol Level 161 mg/dL (< 200) LDL Cholesterol 105 mg/dL (60-99) H HDL Cholesterol 38 mg/dL (> 60) Cholesterol/HDL Ratio 4.2 (3.3-4.4) Lipase 22 U/L (< 60) Vitamin B12 Level > 2000 pg/mL (211-946) H Folate Pending Thyroid Stimulating Hormone (TSH) 3.270 uIU/mL (0.300-4.500) Current Medications Medications (Trade) Dose Ordered Sig/Elle Route PRN Reason Start Time Stop Time Status Last Admin Dose Admin Acetaminophen (Tylenol) 650 mg Q4H PRN ORAL fever 08/13/17 23:45 09/12/17 23:44 08/14/17 22:15 Albuterol/ Ipratropium (DuoNeb 0.5-3(2.5)mg/3ml) 3 ml Q4H PRN HHN Shortness of Breath 08/13/17 23:45 08/18/17 23:44 Cefepime HCl 2 gm/ Dextrose 110 ml @ 220 mls/hr Q12HR IV 08/14/17 09:00 08/21/17 08:59 08/15/17 10:52 Gabapentin (Neurontin) 300 mg BID ORAL 08/15/17 18:00 09/14/17 17:59 08/15/17 17:13 Heparin Sodium (Porcine) (Heparin 5000 units/ml) 5,000 units EVERY 12 HOURS SUBQ 08/14/17 09:00 09/13/17 08:59 08/15/17 09:01 Lorazepam (Ativan 2mg/ml 1ml) 1 mg Q4H PRN IV For Anxiety 08/14/17 01:45 08/21/17 01:44 Metformin HCl (Glucophage) 500 mg TIAC ORAL 08/14/17 16:30 09/13/17 16:29 08/15/17 17:13 Metronidazole (Flagyl) 500 mg Q8HR ORAL 08/14/17 18:00 08/21/17 17:59 08/15/17 14:05 Morphine Sulfate (Morphine Sulfate) 2 mg Q4H PRN IVP Moderate Pain (Pain Scale 4-6) 08/13/17 23:45 08/20/17 23:44 Ondansetron HCl (Zofran) 4 mg Q6H PRN IVP Nausea & Vomiting 08/13/17 23:45 09/12/17 23:44 Pantoprazole (Protonix) 40 mg EVERY 12 HOURS ORAL 08/14/17 15:00 09/13/17 14:59 08/15/17 08:55 Phenazopyridine HCl (Pyridium) 100 mg DAILY PRN ORAL dysuria 08/13/17 23:45 09/12/17 23:44 Polyethylene Glycol (Miralax) 17 gm DAILYPRN PRN ORAL Constipation 08/13/17 23:45 09/12/17 23:44 Sodium Chloride 500 ml @ 30 mls/hr ONCE ONCE IV 08/15/17 17:00 08/16/17 09:39 08/15/17 18:23 Tamsulosin HCl (Flomax) 0.4 mg BID ORAL 08/15/17 12:00 09/14/17 11:59 08/15/17 17:13 Temazepam (Restoril) 15 mg HSPRN PRN ORAL Insomnia 08/13/17 23:45 08/20/17 23:44 Vitamin D (Vitamin D) 1,000 intlu DAILY ORAL 08/15/17 09:00 09/14/17 08:59 08/15/17 08:55 DEBBI ROSENBAUM M.D. Aug 15, 2017 20:33
[2017-08-15] MEDS: Vancomycin 1 GM in NS 275 ML IVPB SCH (21:38)
[2017-08-16 00:30] VITALS: BP 122/70
[2017-08-16 04:30] VITALS: BP 126/72
[2017-08-16] MEDS: metroNIDAZOLE 500mg tab ORAL SCH ×3 (06:12→22:09)
[2017-08-16] MEDS: metFORMIN 500mg tab ORAL SCH ×3 (06:12→17:09)
[2017-08-16] MEDS: Vancomycin 1 GM in NS 275 ML IVPB SCH ×3 (06:13→22:09)
[2017-08-16 07:26] LABS: BASOPHILS % (AUTO) 0.6 % (0.0-2.0); EOSINOPHILS % (AUTO) 1.8 % (0.0-3.0); LYMPHOCYTES % (AUTO) 20.5 % (20.0-45.0); MEAN CORPUSCULAR HEMOGLOBIN 32.5 PG (27.0-31.0); MEAN CORPUSCULAR HGB CONC 33.6 G/DL (32.0-36.0); MEAN CORPUSCULAR VOLUME 97 FL (80-99); MEAN PLATELET VOLUME 8.2 FL (6.5-10.1); MONOCYTES % (AUTO) 3.9 % (1.0-10.0); NEUTROPHILS % (AUTO) 73.3 % (45.0-75.0); PLATELET COUNT 263 K/UL (150-450); RED BLOOD COUNT 3.45 M/UL (4.70-6.10); RED CELL DISTRIBUTION WIDTH 13.5 % (11.6-14.8); WHITE BLOOD COUNT 14.5 K/UL (4.8-10.8)
[2017-08-16 08:00] VITALS: BP 140/77
[2017-08-16 08:09] LABS: ALANINE AMINOTRANSFERASE 21 U/L (3-41); ALBUMIN/GLOBULIN RATIO 0.9 (1.0-2.7); ANION GAP 14 (5-15); ASPARTATE AMINO TRANSFERASE 35 U/L (5-40); CALCIUM 8.6 mg/dL (8.6-10.2); CARBON DIOXIDE 27 mEQ/L (20-30); CHLORIDE 91 mEQ/L (98-107); CREATININE 0.8 mg/dL (0.7-1.2); CRP QUANT 14.1 mg/dL (< 0.5); GLOMERULAR FILTRATION RATE > 60 mL/min (>60); HEMOLYSIS 0; MAGNESIUM 1.8 mg/dL (1.7-2.5); PHOSPHORUS 1.7 mg/dL (2.5-4.8); POTASSIUM 3.1 mEQ/L (3.4-4.9); SODIUM 132 mEQ/L (135-145); TOTAL PROTEIN 6.3 g/dL (6.6-8.7); URIC ACID 6.2 mg/dL (3.0-7.5)
[2017-08-16] MEDS: Tamsulosin 0.4mg cap ORAL SCH ×2 (09:39→18:05)
[2017-08-16] MEDS: Vitamin D 1000 IU Tab ORAL SCH (09:39)
[2017-08-16] MEDS: Cefepime HCl 2 GM in D5W 110 ML IV SCH ×2 (09:39→20:40)
[2017-08-16] MEDS: Heparin 5000 units/ml inj SUBQ SCH ×2 (09:41→20:39)
[2017-08-16] MEDS ORDERED: Potassium Phosphate 30 MM in NS 275 ML IV ONE (10:30)
[2017-08-16] MEDS ORDERED: Phospha 250 Neutral tab ORAL ONE (11:30)
--- NOTE | 2017-08-16 11:30 | General Progress Note ---
Assessment/Plan Status: doing well Status Narrative WBCs lower Assessment/Plan Low Na , ? depletional Lasix , leading to low Na and K HypoKalemia due to Lasix DM HTN Obesity Leukocytosis , etiology?? High Cholestrol HyperUrecemia UTI 3% Saline- again IV K Phos and added PO K and Phos PO Protonix Avoid nephrotoxics On glucophage on medium CHO diet start on flomax per orders Subjective ROS Limited/Unobtainable: No Constitutional: Reports: other - improving Allergies: Coded Allergies: No Known Allergies (Unverified , 08/13/17) Objective Last 24 Hour Vital Signs Date Time Temp Pulse Resp B/P (MAP) Pulse Ox O2 Delivery O2 Flow Rate FiO2 08/16/17 08:02 72 18 Room Air 21 08/16/17 08:00 96.0 74 17 140/77 99 Room Air 08/16/17 04:30 97.0 66 28 126/72 96 Room Air 08/16/17 00:30 98.2 23 122/70 99 Room Air 08/15/17 20:08 65 18 Room Air 21 08/15/17 19:52 98.2 68 20 124/75 98 Room Air 08/15/17 15:44 97.8 78 19 117/78 97 Room Air 08/15/17 12:02 98.4 67 19 118/74 Room Air Laboratory Tests 08/16/17 04:45: White Blood Count 14.5H, Red Blood Count 3.45L, Hemoglobin 11.2L, Hematocrit 33.4L, Mean Corpuscular Volume 97, Mean Corpuscular Hemoglobin 32.5H, Mean Corpuscular Hemoglobin Concent 33.6, Red Cell Distribution Width 13.5, Platelet Count 263, Mean Platelet Volume 8.2, Neutrophils (%) (Auto) 73.3, Lymphocytes (% ) (Auto) 20.5, Monocytes (%) (Auto) 3.9, Eosinophils (%) (Auto) 1.8, Basophils ( %) (Auto) 0.6, Sodium Level 132L, Potassium Level 3.1L, Chloride Level 91L, Carbon Dioxide Level 27, Anion Gap 14, Blood Urea Nitrogen 12, Creatinine 0.8, Estimat Glomerular Filtration Rate > 60, Glucose Level 149H, Uric Acid 6.2, Calcium Level 8.6, Phosphorus Level 1.7L, Magnesium Level 1.8, Total Bilirubin 0.2, Gamma Glutamyl Transpeptidase 57, Aspartate Amino Transf (AST/SGOT) 35, Alanine Aminotransferase (ALT/SGPT) 21, Alkaline Phosphatase 96, C-Reactive Protein, Quantitative 14.1H, Pro-B-Type Natriuretic Peptide 610H, Total Protein 6.3L, Albumin 3.1L, Globulin 3.2, Albumin/Globulin Ratio 0.9L Height (Feet): 6 Height (Inches): 0.00 Weight (Pounds): 295 General Appearance: no apparent distress Objective no other changes MAIN MCMAHAN Aug 16, 2017 11:30
[2017-08-16 12:00] VITALS: BP 101/63
[2017-08-16] MEDS ORDERED: NaCl 3% 500ml 500 ML IV ONE (13:00)
--- NOTE | 2017-08-16 14:28 | Pulmonology Progress Note ---
Assessment/Plan Problems: (1) Sepsis (2) Altered level of consciousness (3) Diabetes (4) HTN (hypertension) Assessment/Plan f/u blood culture results, GPC, sensitivy pending wbc decreasing f/u Na f/u renal and ID recommendations afebrile Subjective ROS Limited/Unobtainable: No Interval Events: feeling better Allergies: Coded Allergies: No Known Allergies (Unverified , 08/13/17) Objective Last 24 Hour Vital Signs Date Time Temp Pulse Resp B/P (MAP) Pulse Ox O2 Delivery O2 Flow Rate FiO2 08/16/17 12:00 98.1 64 18 101/63 97 Room Air 08/16/17 08:02 72 18 Room Air 21 08/16/17 08:00 96.0 74 17 140/77 99 Room Air 08/16/17 04:30 97.0 66 28 126/72 96 Room Air 08/16/17 00:30 98.2 23 122/70 99 Room Air 08/15/17 20:08 65 18 Room Air 21 08/15/17 19:52 98.2 68 20 124/75 98 Room Air 08/15/17 15:44 97.8 78 19 117/78 97 Room Air General Appearance: WD/WN HEENT: normocephalic, atraumatic Respiratory/Chest: chest wall non-tender, lungs clear Cardiovascular: normal peripheral pulses, normal rate Abdomen: normal bowel sounds, soft, non tender Genitourinary: normal external genitalia Extremities: no cyanosis Skin: no rash Neurologic/Psychiatric: drainman II-XII grossly normal Lymphatic: no neck adenopathy Microbiology Date/Time Source Procedure Growth Status 08/13/17 21:45 Blood Blood Culture - Preliminary Strep Species, Alpha Hemolytic Staphylococcus Sp Coag Neg Resulted 08/13/17 21:25 Blood Blood Culture - Preliminary Gram Positive Cocci Staphylococcus Sp Coag Neg Resulted 08/14/17 14:45 Indwelling Cath Urine Culture - Preliminary NO GROWTH AFTER 24 HOURS Resulted 08/13/17 20:23 Urine,Catheterized Urine Culture - Final Escherichia Coli Complete Laboratory Tests 08/16/17 04:45: White Blood Count 14.5H, Red Blood Count 3.45L, Hemoglobin 11.2L, Hematocrit 33.4L, Mean Corpuscular Volume 97, Mean Corpuscular Hemoglobin 32.5H, Mean Corpuscular Hemoglobin Concent 33.6, Red Cell Distribution Width 13.5, Platelet Count 263, Mean Platelet Volume 8.2, Neutrophils (%) (Auto) 73.3, Lymphocytes (% ) (Auto) 20.5, Monocytes (%) (Auto) 3.9, Eosinophils (%) (Auto) 1.8, Basophils ( %) (Auto) 0.6, Sodium Level 132L, Potassium Level 3.1L, Chloride Level 91L, Carbon Dioxide Level 27, Anion Gap 14, Blood Urea Nitrogen 12, Creatinine 0.8, Estimat Glomerular Filtration Rate > 60, Glucose Level 149H, Uric Acid 6.2, Calcium Level 8.6, Phosphorus Level 1.7L, Magnesium Level 1.8, Total Bilirubin 0.2, Gamma Glutamyl Transpeptidase 57, Aspartate Amino Transf (AST/SGOT) 35, Alanine Aminotransferase (ALT/SGPT) 21, Alkaline Phosphatase 96, C-Reactive Protein, Quantitative 14.1H, Pro-B-Type Natriuretic Peptide 610H, Total Protein 6.3L, Albumin 3.1L, Globulin 3.2, Albumin/Globulin Ratio 0.9L Current Medications Medications (Trade) Dose Ordered Sig/Elle Route PRN Reason Start Time Stop Time Status Last Admin Dose Admin Acetaminophen (Tylenol) 650 mg Q4H PRN ORAL fever 08/13/17 23:45 09/12/17 23:44 08/15/17 21:47 Albuterol/ Ipratropium (DuoNeb 0.5-3(2.5)mg/3ml) 3 ml Q4H PRN HHN Shortness of Breath 08/13/17 23:45 08/18/17 23:44 Cefepime HCl 2 gm/ Dextrose 110 ml @ 220 mls/hr Q12HR IV 08/14/17 09:00 08/21/17 08:59 08/16/17 09:39 Gabapentin (Neurontin) 300 mg BID ORAL 08/15/17 18:00 09/14/17 17:59 08/16/17 09:39 Heparin Sodium (Porcine) (Heparin 5000 units/ml) 5,000 units EVERY 12 HOURS SUBQ 08/14/17 09:00 09/13/17 08:59 08/16/17 09:41 Lorazepam (Ativan 2mg/ml 1ml) 1 mg Q4H PRN IV For Anxiety 08/14/17 01:45 08/21/17 01:44 Metformin HCl (Glucophage) 500 mg TIAC ORAL 08/14/17 16:30 09/13/17 16:29 08/16/17 11:14 Metronidazole (Flagyl) 500 mg Q8HR ORAL 08/14/17 18:00 08/21/17 17:59 08/16/17 06:12 Morphine Sulfate (Morphine Sulfate) 2 mg Q4H PRN IVP Moderate Pain (Pain Scale 4-6) 08/13/17 23:45 08/20/17 23:44 Ondansetron HCl (Zofran) 4 mg Q6H PRN IVP Nausea & Vomiting 08/13/17 23:45 09/12/17 23:44 Pantoprazole (Protonix) 40 mg EVERY 12 HOURS ORAL 08/14/17 15:00 09/13/17 14:59 08/16/17 09:39 Polyethylene Glycol (Miralax) 17 gm DAILYPRN PRN ORAL Constipation 08/13/17 23:45 09/12/17 23:44 Potassium Phosphate 30 mm/ Sodium Chloride 285 ml @ 47.5 mls/hr ONCE ONCE IV 08/16/17 10:30 08/16/17 16:29 08/16/17 11:14 Sodium Chloride 500 ml @ 30 mls/hr ONCE ONCE IV 08/16/17 13:00 08/17/17 05:39 Tamsulosin HCl (Flomax) 0.4 mg BID ORAL 08/15/17 12:00 09/14/17 11:59 08/16/17 09:39 Temazepam (Restoril) 15 mg HSPRN PRN ORAL Insomnia 08/13/17 23:45 08/20/17 23:44 Vancomycin HCl (Vanco rx to dose) 1 ea DAILY PRN MISC Per rx protocol 08/15/17 20:45 09/14/17 20:44 Vancomycin HCl 1 gm/Sodium Chloride 275 ml @ 183.708 mls/hr Q8H IVPB 08/15/17 22:00 08/20/17 21:59 08/16/17 06:13 Vitamin D (Vitamin D) 1,000 intlu DAILY ORAL 08/15/17 09:00 09/14/17 08:59 08/16/17 09:39 TETO SMITH Aug 16, 2017 14:28
[2017-08-16 15:20] VITALS: BP 109/63
[2017-08-16 20:00] VITALS: BP 117/66
--- NOTE | 2017-08-16 20:03 | Infectious Diseases Prog Note ---
Assessment/Plan Assessment/Plan Assessment: The patient is a 67-year-old male with Altered level of consciousness. Leukocytosis, probably due to acute stress vs UTI improving Low-grade fever , SP possible aspiration pneumonia. Bacteremia strp and CoNS ( m/l contaminant ) Probable UTI Ucx: EColi SP Hypokalemia and hyponatremia Hyperlipidemia. Hypertension. GERD. Diabetes PLAN: continue the patient on cefepime and Flagyl d# 3 , add IV VAnco d# 2 , if TTE neg for Veg , may DC pt w cont of Augmentin x 10 d Monitor CBC. Monitor BMP. Monitor cultures (blood and urine). Monitor chest x-ray. Echo : P Subjective Constitutional: Denies: no symptoms, fever, chills, fatigue, anorexia, drenching sweats, other Allergies: Coded Allergies: No Known Allergies (Unverified , 08/13/17) Objective Vital Signs Last 24 Hour Vital Signs Date Time Temp Pulse Resp B/P (MAP) Pulse Ox O2 Delivery O2 Flow Rate FiO2 08/16/17 15:20 97.9 62 20 109/63 99 Room Air 08/16/17 12:00 98.1 64 18 101/63 97 Room Air 08/16/17 08:02 72 18 Room Air 21 08/16/17 08:00 96.0 74 17 140/77 99 Room Air 08/16/17 04:30 97.0 66 28 126/72 96 Room Air 08/16/17 00:30 98.2 23 122/70 99 Room Air 08/15/17 20:08 65 18 Room Air 21 Height (Feet): 6 Height (Inches): 0.00 Weight (Pounds): 295 HEENT: anicteric Respiratory/Chest: no accessory muscle use Cardiovascular: regular rhythm Abdomen: soft, non tender Microbiology Date/Time Source Procedure Growth Status 08/13/17 21:45 Blood Blood Culture - Preliminary Strep Species, Alpha Hemolytic Staphylococcus Sp Coag Neg Resulted 08/13/17 21:25 Blood Blood Culture - Preliminary Gram Positive Cocci Staphylococcus Sp Coag Neg Resulted 08/14/17 14:45 Indwelling Cath Urine Culture - Preliminary NO GROWTH AFTER 24 HOURS Resulted 08/13/17 20:23 Urine,Catheterized Urine Culture - Final Escherichia Coli Complete Laboratory Tests Test 08/16/17 04:45 White Blood Count 14.5 K/UL (4.8-10.8) H Red Blood Count 3.45 M/UL (4.70-6.10) L Hemoglobin 11.2 G/DL (14.2-18.0) L Hematocrit 33.4 % (42.0-52.0) L Mean Corpuscular Volume 97 FL (80-99) Mean Corpuscular Hemoglobin 32.5 PG (27.0-31.0) H Mean Corpuscular Hemoglobin Concent 33.6 G/DL (32.0-36.0) Red Cell Distribution Width 13.5 % (11.6-14.8) Platelet Count 263 K/UL (150-450) Mean Platelet Volume 8.2 FL (6.5-10.1) Neutrophils (%) (Auto) 73.3 % (45.0-75.0) Lymphocytes (%) (Auto) 20.5 % (20.0-45.0) Monocytes (%) (Auto) 3.9 % (1.0-10.0) Eosinophils (%) (Auto) 1.8 % (0.0-3.0) Basophils (%) (Auto) 0.6 % (0.0-2.0) Sodium Level 132 mEQ/L (135-145) L Potassium Level 3.1 mEQ/L (3.4-4.9) L Chloride Level 91 mEQ/L (98-107) L Carbon Dioxide Level 27 mEQ/L (20-30) Anion Gap 14 (5-15) Blood Urea Nitrogen 12 mg/dL (7-23) Creatinine 0.8 mg/dL (0.7-1.2) Estimat Glomerular Filtration Rate > 60 mL/min (>60) Glucose Level 149 mg/dL (74-106) H Uric Acid 6.2 mg/dL (3.0-7.5) Calcium Level 8.6 mg/dL (8.6-10.2) Phosphorus Level 1.7 mg/dL (2.5-4.8) L Magnesium Level 1.8 mg/dL (1.7-2.5) Total Bilirubin 0.2 mg/dL (0.0-1.2) Gamma Glutamyl Transpeptidase 57 U/L (8-61) Aspartate Amino Transf (AST/SGOT) 35 U/L (5-40) Alanine Aminotransferase (ALT/SGPT) 21 U/L (3-41) Alkaline Phosphatase 96 U/L (40-129) C-Reactive Protein, Quantitative 14.1 mg/dL (< 0.5) H Pro-B-Type Natriuretic Peptide 610 pg/mL (0-125) H Total Protein 6.3 g/dL (6.6-8.7) L Albumin 3.1 g/dL (3.5-5.2) L Globulin 3.2 g/dL Albumin/Globulin Ratio 0.9 (1.0-2.7) L Current Medications Medications (Trade) Dose Ordered Sig/Elle Route PRN Reason Start Time Stop Time Status Last Admin Dose Admin Acetaminophen (Tylenol) 650 mg Q4H PRN ORAL fever 08/13/17 23:45 09/12/17 23:44 08/15/17 21:47 Albuterol/ Ipratropium (DuoNeb 0.5-3(2.5)mg/3ml) 3 ml Q4H PRN HHN Shortness of Breath 08/13/17 23:45 08/18/17 23:44 Cefepime HCl 2 gm/ Dextrose 110 ml @ 220 mls/hr Q12HR IV 08/14/17 09:00 08/21/17 08:59 08/16/17 09:39 Gabapentin (Neurontin) 300 mg BID ORAL 08/15/17 18:00 09/14/17 17:59 08/16/17 18:05 Heparin Sodium (Porcine) (Heparin 5000 units/ml) 5,000 units EVERY 12 HOURS SUBQ 08/14/17 09:00 09/13/17 08:59 08/16/17 09:41 Lorazepam (Ativan 2mg/ml 1ml) 1 mg Q4H PRN IV For Anxiety 08/14/17 01:45 08/21/17 01:44 Metformin HCl (Glucophage) 500 mg TIAC ORAL 08/14/17 16:30 09/13/17 16:29 08/16/17 17:09 Metronidazole (Flagyl) 500 mg Q8HR ORAL 08/14/17 18:00 08/21/17 17:59 08/16/17 15:54 Morphine Sulfate (Morphine Sulfate) 2 mg Q4H PRN IVP Moderate Pain (Pain Scale 4-6) 08/13/17 23:45 08/20/17 23:44 Ondansetron HCl (Zofran) 4 mg Q6H PRN IVP Nausea & Vomiting 08/13/17 23:45 09/12/17 23:44 Pantoprazole (Protonix) 40 mg EVERY 12 HOURS ORAL 08/14/17 15:00 09/13/17 14:59 08/16/17 09:39 Polyethylene Glycol (Miralax) 17 gm DAILYPRN PRN ORAL Constipation 08/13/17 23:45 09/12/17 23:44 Sodium Chloride 500 ml @ 30 mls/hr ONCE ONCE IV 08/16/17 13:00 08/17/17 05:39 08/16/17 17:08 Tamsulosin HCl (Flomax) 0.4 mg BID ORAL 08/15/17 12:00 09/14/17 11:59 08/16/17 18:05 Temazepam (Restoril) 15 mg HSPRN PRN ORAL Insomnia 08/13/17 23:45 08/20/17 23:44 Vancomycin HCl (Vanco rx to dose) 1 ea DAILY PRN MISC Per rx protocol 08/15/17 20:45 09/14/17 20:44 Vancomycin HCl 1 gm/Sodium Chloride 275 ml @ 183.708 mls/hr Q8H IVPB 08/15/17 22:00 08/20/17 21:59 08/16/17 17:06 Vitamin D (Vitamin D) 1,000 intlu DAILY ORAL 08/15/17 09:00 09/14/17 08:59 08/16/17 09:39 DEBBI ROSENBAUM M.D. Aug 16, 2017 20:03
[2017-08-17] VITALS: BP 108/64
[2017-08-17 03:14] VITALS: BP 117/66
[2017-08-17 04:00] VITALS: BP 125/65
[2017-08-17] MEDS: metroNIDAZOLE 500mg tab ORAL SCH ×2 (06:02→14:10)
[2017-08-17] MEDS: metFORMIN 500mg tab ORAL SCH ×2 (06:02→10:56)
[2017-08-17] MEDS: Vancomycin 1 GM in NS 275 ML IVPB SCH ×2 (06:03→14:10)
[2017-08-17 07:24] LABS: BASOPHILS % (AUTO) 0.7 % (0.0-2.0); LYMPHOCYTES % (AUTO) 25.1 % (20.0-45.0); MEAN CORPUSCULAR HEMOGLOBIN 32.3 PG (27.0-31.0); MEAN CORPUSCULAR HGB CONC 33.1 G/DL (32.0-36.0); MEAN CORPUSCULAR VOLUME 97 FL (80-99); MEAN PLATELET VOLUME 7.4 FL (6.5-10.1); MONOCYTES % (AUTO) 4.9 % (1.0-10.0); NEUTROPHILS % (AUTO) 66.3 % (45.0-75.0); PLATELET COUNT 264 K/UL (150-450); RED BLOOD COUNT 3.46 M/UL (4.70-6.10); RED CELL DISTRIBUTION WIDTH 13.6 % (11.6-14.8); WHITE BLOOD COUNT 11.6 K/UL (4.8-10.8)
[2017-08-17 07:43] LABS: ALANINE AMINOTRANSFERASE 20 U/L (3-41); ALBUMIN/GLOBULIN RATIO 1.1 (1.0-2.7); ANION GAP 12 (5-15); ASPARTATE AMINO TRANSFERASE 29 U/L (5-40); CALCIUM 8.6 mg/dL (8.6-10.2); CARBON DIOXIDE 25 mEQ/L (20-30); CHLORIDE 96 mEQ/L (98-107); CREATININE 0.8 mg/dL (0.7-1.2); CRP QUANT 6.8 mg/dL (< 0.5); GLOMERULAR FILTRATION RATE > 60 mL/min (>60); HEMOLYSIS 3; MAGNESIUM 1.5 mg/dL (1.7-2.5); POTASSIUM 3.9 mEQ/L (3.4-4.9); SODIUM 133 mEQ/L (135-145); TOTAL PROTEIN 6.1 g/dL (6.6-8.7); URIC ACID 5.4 mg/dL (3.0-7.5)
[2017-08-17 08:16] VITALS: BP 156/82
[2017-08-17] MEDS: Tamsulosin 0.4mg cap ORAL SCH (08:30)
[2017-08-17] MEDS: Cefepime HCl 2 GM in D5W 110 ML IV SCH (08:30)
[2017-08-17] MEDS: Vitamin D 1000 IU Tab ORAL SCH (08:30)
[2017-08-17] MEDS: Heparin 5000 units/ml inj SUBQ SCH (08:32)
[2017-08-17] MEDS ORDERED: Promethazine/Codeine 5ml UD ORAL PRN (09:45)
[2017-08-17 11:29] VITALS: BP 146/76
--- NOTE | 2017-08-17 12:36 | General Progress Note ---
Assessment/Plan Status: stable Assessment/Plan Low Na , ? depletional Lasix , leading to low Na and K HypoKalemia due to Lasix DM HTN Obesity Leukocytosis , etiology?? High Cholestrol HyperUrecemia UTI Po Phos and Mag Po fluid restriction PO Protonix Avoid nephrotoxics On glucophage on medium CHO diet on flomax per orders DC planning??? Subjective ROS Limited/Unobtainable: No Constitutional: Reports: malaise, weakness Allergies: Coded Allergies: No Known Allergies (Unverified , 08/13/17) Objective Last 24 Hour Vital Signs Date Time Temp Pulse Resp B/P (MAP) Pulse Ox O2 Delivery O2 Flow Rate FiO2 08/17/17 11:29 98.1 58 18 146/76 98 Room Air 08/17/17 08:16 97.5 62 18 156/82 97 Room Air 08/17/17 07:24 85 20 Room Air 21 08/17/17 04:00 98.0 59 20 125/65 98 Room Air 08/17/17 03:14 Nasal Cannula 08/17/17 00:00 98.1 59 18 108/64 95 Room Air 08/16/17 20:00 98.4 58 18 117/66 96 Room Air 08/16/17 19:38 81 20 Room Air 21 08/16/17 15:20 97.9 62 20 109/63 99 Room Air Laboratory Tests 08/16/17 21:10: Vancomycin Level Trough 17.4H 08/17/17 04:35: White Blood Count 11.6H, Red Blood Count 3.46L, Hemoglobin 11.2L, Hematocrit 33.7L, Mean Corpuscular Volume 97, Mean Corpuscular Hemoglobin 32.3H, Mean Corpuscular Hemoglobin Concent 33.1, Red Cell Distribution Width 13.6, Platelet Count 264, Mean Platelet Volume 7.4, Neutrophils (%) (Auto) 66.3, Lymphocytes (% ) (Auto) 25.1, Monocytes (%) (Auto) 4.9, Eosinophils (%) (Auto) 3.0, Basophils ( %) (Auto) 0.7, Sodium Level 133L, Potassium Level 3.9, Chloride Level 96L, Carbon Dioxide Level 25, Anion Gap 12, Blood Urea Nitrogen 10, Creatinine 0.8, Estimat Glomerular Filtration Rate > 60, Glucose Level 140H, Uric Acid 5.4, Calcium Level 8.6, Phosphorus Level 2.0L, Magnesium Level 1.5L, Total Bilirubin 0.2, Aspartate Amino Transf (AST/SGOT) 29, Alanine Aminotransferase (ALT/SGPT) 20, Alkaline Phosphatase 84, C-Reactive Protein, Quantitative 6.8H, Pro-B-Type Natriuretic Peptide 1025H, Total Protein 6.1L, Albumin 3.2L, Globulin 2.9, Albumin/Globulin Ratio 1.1 Height (Feet): 6 Height (Inches): 0.00 Weight (Pounds): 295 General Appearance: no apparent distress Edema: 1+ Arm (L), 1+ Arm (R), 1+ Leg (L), 1+ Leg (R), 1+ Pedal (L), 1+ Pedal ( R), 1+ Generalized Objective no other changes MAIN MCMAHAN Aug 17, 2017 12:36
[2017-08-17] MEDS ORDERED: Magnesium Oxide 400mg tab ORAL SCH (13:00)
[2017-08-17] MEDS ORDERED: Phospha 250 Neutral tab ORAL SCH (13:00)
[2017-08-17] MEDS ORDERED: AUGMENTIN 875-1 EAC1 ORAL (13:13)
[2017-08-17] MEDS ORDERED: Heparin 5000 units/ml inj SUBQ SCH (14:00)
--- NOTE | 2017-08-17 14:19 | Cardiology Progress Note ---
Assessment/Plan Assessment/Plan [id number] Objective Last 24 Hour Vital Signs Date Time Temp Pulse Resp B/P (MAP) Pulse Ox O2 Delivery O2 Flow Rate FiO2 08/17/17 11:29 98.1 58 18 146/76 98 Room Air 08/17/17 08:16 97.5 62 18 156/82 97 Room Air 08/17/17 07:24 85 20 Room Air 21 08/17/17 04:00 98.0 59 20 125/65 98 Room Air 08/17/17 03:14 Nasal Cannula 08/17/17 00:00 98.1 59 18 108/64 95 Room Air 08/16/17 20:00 98.4 58 18 117/66 96 Room Air 08/16/17 19:38 81 20 Room Air 21 08/16/17 15:20 97.9 62 20 109/63 99 Room Air Laboratory Tests Test 08/16/17 21:10 08/17/17 04:35 Vancomycin Level Trough 17.4 ug/mL (5.0-12.0) H White Blood Count 11.6 K/UL (4.8-10.8) H Red Blood Count 3.46 M/UL (4.70-6.10) L Hemoglobin 11.2 G/DL (14.2-18.0) L Hematocrit 33.7 % (42.0-52.0) L Mean Corpuscular Volume 97 FL (80-99) Mean Corpuscular Hemoglobin 32.3 PG (27.0-31.0) H Mean Corpuscular Hemoglobin Concent 33.1 G/DL (32.0-36.0) Red Cell Distribution Width 13.6 % (11.6-14.8) Platelet Count 264 K/UL (150-450) Mean Platelet Volume 7.4 FL (6.5-10.1) Neutrophils (%) (Auto) 66.3 % (45.0-75.0) Lymphocytes (%) (Auto) 25.1 % (20.0-45.0) Monocytes (%) (Auto) 4.9 % (1.0-10.0) Eosinophils (%) (Auto) 3.0 % (0.0-3.0) Basophils (%) (Auto) 0.7 % (0.0-2.0) Sodium Level 133 mEQ/L (135-145) L Potassium Level 3.9 mEQ/L (3.4-4.9) Chloride Level 96 mEQ/L (98-107) L Carbon Dioxide Level 25 mEQ/L (20-30) Anion Gap 12 (5-15) Blood Urea Nitrogen 10 mg/dL (7-23) Creatinine 0.8 mg/dL (0.7-1.2) Estimat Glomerular Filtration Rate > 60 mL/min (>60) Glucose Level 140 mg/dL (74-106) H Uric Acid 5.4 mg/dL (3.0-7.5) Calcium Level 8.6 mg/dL (8.6-10.2) Phosphorus Level 2.0 mg/dL (2.5-4.8) L Magnesium Level 1.5 mg/dL (1.7-2.5) L Total Bilirubin 0.2 mg/dL (0.0-1.2) Aspartate Amino Transf (AST/SGOT) 29 U/L (5-40) Alanine Aminotransferase (ALT/SGPT) 20 U/L (3-41) Alkaline Phosphatase 84 U/L (40-129) C-Reactive Protein, Quantitative 6.8 mg/dL (< 0.5) H Pro-B-Type Natriuretic Peptide 1025 pg/mL (0-125) H Total Protein 6.1 g/dL (6.6-8.7) L Albumin 3.2 g/dL (3.5-5.2) L Globulin 2.9 g/dL Albumin/Globulin Ratio 1.1 (1.0-2.7) Microbiology Date/Time Source Procedure Growth Status 08/15/17 21:00 Blood Blood Culture - Preliminary NO GROWTH AFTER 24 HOURS Resulted 08/15/17 20:55 Blood Blood Culture - Preliminary NO GROWTH AFTER 24 HOURS Resulted 08/14/17 14:45 Indwelling Cath Urine Culture - Final NO GROWTH AFTER 48 HOURS RODNEY Hamm Aug 17, 2017 14:19
--- NOTE | 2017-08-17 14:55 | Pulmonology Progress Note ---
Assessment/Plan Problems: (1) Sepsis (2) Altered level of consciousness (3) Diabetes (4) HTN (hypertension) Assessment/Plan f/u blood culture results, GPC, most likely contaminated, f/u cultures are negtive wbc decreasing dc with Dr. Chery will arrange for outpatient f/u with Dr. Chery. Subjective ROS Limited/Unobtainable: No Constitutional: Reports: no symptoms HEENT: Repors: no symptoms Respiratory: Reports: no symptoms Allergies: Coded Allergies: No Known Allergies (Unverified , 08/13/17) Objective Last 24 Hour Vital Signs Date Time Temp Pulse Resp B/P (MAP) Pulse Ox O2 Delivery O2 Flow Rate FiO2 08/17/17 11:29 98.1 58 18 146/76 98 Room Air 08/17/17 08:16 97.5 62 18 156/82 97 Room Air 08/17/17 07:24 85 20 Room Air 21 08/17/17 04:00 98.0 59 20 125/65 98 Room Air 08/17/17 03:14 Nasal Cannula 08/17/17 00:00 98.1 59 18 108/64 95 Room Air 08/16/17 20:00 98.4 58 18 117/66 96 Room Air 08/16/17 19:38 81 20 Room Air 21 08/16/17 15:20 97.9 62 20 109/63 99 Room Air General Appearance: WD/WN HEENT: normocephalic, anicteric Respiratory/Chest: chest wall non-tender, lungs clear Cardiovascular: normal peripheral pulses, normal rate Genitourinary: normal external genitalia Extremities: no cyanosis Skin: no rash, no ulcers Microbiology Date/Time Source Procedure Growth Status 08/15/17 21:00 Blood Blood Culture - Preliminary NO GROWTH AFTER 24 HOURS Resulted 08/15/17 20:55 Blood Blood Culture - Preliminary NO GROWTH AFTER 24 HOURS Resulted Laboratory Tests 08/16/17 21:10: Vancomycin Level Trough 17.4H 08/17/17 04:35: White Blood Count 11.6H, Red Blood Count 3.46L, Hemoglobin 11.2L, Hematocrit 33.7L, Mean Corpuscular Volume 97, Mean Corpuscular Hemoglobin 32.3H, Mean Corpuscular Hemoglobin Concent 33.1, Red Cell Distribution Width 13.6, Platelet Count 264, Mean Platelet Volume 7.4, Neutrophils (%) (Auto) 66.3, Lymphocytes (% ) (Auto) 25.1, Monocytes (%) (Auto) 4.9, Eosinophils (%) (Auto) 3.0, Basophils ( %) (Auto) 0.7, Sodium Level 133L, Potassium Level 3.9, Chloride Level 96L, Carbon Dioxide Level 25, Anion Gap 12, Blood Urea Nitrogen 10, Creatinine 0.8, Estimat Glomerular Filtration Rate > 60, Glucose Level 140H, Uric Acid 5.4, Calcium Level 8.6, Phosphorus Level 2.0L, Magnesium Level 1.5L, Total Bilirubin 0.2, Aspartate Amino Transf (AST/SGOT) 29, Alanine Aminotransferase (ALT/SGPT) 20, Alkaline Phosphatase 84, C-Reactive Protein, Quantitative 6.8H, Pro-B-Type Natriuretic Peptide 1025H, Total Protein 6.1L, Albumin 3.2L, Globulin 2.9, Albumin/Globulin Ratio 1.1 Current Medications Medications (Trade) Dose Ordered Sig/Elle Route PRN Reason Start Time Stop Time Status Last Admin Dose Admin Acetaminophen (Tylenol) 650 mg Q4H PRN ORAL fever 08/13/17 23:45 09/12/17 23:44 08/15/17 21:47 Albuterol/ Ipratropium (DuoNeb 0.5-3(2.5)mg/3ml) 3 ml Q4H PRN HHN Shortness of Breath 08/13/17 23:45 08/18/17 23:44 Cefepime HCl 2 gm/ Dextrose 110 ml @ 220 mls/hr Q12HR IV 08/14/17 09:00 08/21/17 08:59 08/17/17 08:30 Gabapentin (Neurontin) 300 mg BID ORAL 08/15/17 18:00 09/14/17 17:59 08/17/17 08:30 Heparin Sodium (Porcine) (Heparin 5000 units/ml) 5,000 units EVERY 8 HOURS SUBQ 08/17/17 14:00 09/13/17 08:59 08/17/17 14:12 Lorazepam (Ativan 2mg/ml 1ml) 1 mg Q4H PRN IV For Anxiety 08/14/17 01:45 08/21/17 01:44 Magnesium Oxide (Mag-Ox 400mg) 400 mg THREE TIMES A DAY ORAL 08/17/17 13:00 09/16/17 12:59 08/17/17 14:10 Metformin HCl (Glucophage) 500 mg TIAC ORAL 08/14/17 16:30 09/13/17 16:29 08/17/17 10:56 Metronidazole (Flagyl) 500 mg Q8HR ORAL 08/14/17 18:00 08/21/17 17:59 08/17/17 14:10 Morphine Sulfate (Morphine Sulfate) 2 mg Q4H PRN IVP Moderate Pain (Pain Scale 4-6) 08/13/17 23:45 08/20/17 23:44 Ondansetron HCl (Zofran) 4 mg Q6H PRN IVP Nausea & Vomiting 08/13/17 23:45 09/12/17 23:44 Pantoprazole (Protonix) 40 mg EVERY 12 HOURS ORAL 08/14/17 15:00 09/13/17 14:59 08/17/17 08:30 Phosphorus (Phospha 250 Neutral) 500 mg THREE TIMES A DAY ORAL 08/17/17 13:00 09/16/17 12:59 08/17/17 14:10 Polyethylene Glycol (Miralax) 17 gm DAILYPRN PRN ORAL Constipation 08/13/17 23:45 09/12/17 23:44 Promethazine HCl/ Codeine (Phenergan with Codeine) 5 ml EVERY 6 HOURS PRN ORAL For Cough 08/17/17 09:45 09/16/17 09:44 08/17/17 09:54 Tamsulosin HCl (Flomax) 0.4 mg BID ORAL 08/15/17 12:00 09/14/17 11:59 08/17/17 08:30 Temazepam (Restoril) 15 mg HSPRN PRN ORAL Insomnia 08/13/17 23:45 08/20/17 23:44 Vancomycin HCl (Vanco rx to dose) 1 ea DAILY PRN MISC Per rx protocol 08/15/17 20:45 09/14/17 20:44 Vancomycin HCl 1 gm/Sodium Chloride 275 ml @ 183.708 mls/hr Q8H IVPB 08/15/17 22:00 08/20/17 21:59 08/17/17 14:10 Vitamin D (Vitamin D) 1,000 intlu DAILY ORAL 9/27/17 09:00 09/14/17 08:59 08/17/17 08:30 TETO SMITH Aug 17, 2017 14:55
[2017-08-17] MEDS ORDERED: NS 275ml ONE (15:38)
--- NOTE | 2017-08-19 12:30 | Consultation ---
DATE OF CONSULTATION: 08/17/2017 CARDIOLOGY CONSULTATION CONSULTING PHYSICIAN: Geraldo Chery M.D. REFERRING PHYSICIAN: Octavio Lawson M.D. REASON FOR REFERRAL: Bacteremia. History of Present Illness: This is a 67-year-old gentleman with a history of multiple medical problems, apparently some liver problems, for which he has been followed by [facility], Dr. Hickman, Liver Failure Service. He says he presented to the hospital because of alteration in mentation. The patient himself does not know the reason why he was brought in. The emergency room physician indicates that the patient was brought by emergency medical service from home after sister called EMS that the patient was altered. The patient does not know when to drink water and does not know when to urinate. He cannot take care of himself and under strong medications. The patient himself was not sure why he was in the hospital, he was repeatedly trying to leave. He told the emergency room physician that he was feeling fine. He had no complaints. He was alert and oriented x3. He denied any chest pain, shortness of breath, abdominal pain, or burning on urination. He was noted to have some bacteria in his urine, leukocytes were elevated. Chest x-ray showed negative pneumonia and the patient was admitted to the hospital empirically for treatment and during the hospitalization, was seen by Infectious Disease as well as Nephrology. The opinion of Infectious Disease doctor is that the patient's altered level of consciousness may have been related to an infection. Leukocytosis felt to be related to acute stress versus urinary tract infection that is improving and questionable aspiration pneumonia. He did have some strep in the blood, but it is felt that it is probably contaminant according to the Infectious Disease, Dr. Mitchell. The patient denies any chest pain, pressure, tightness, or heaviness. No PND. No orthopnea. No palpitations. No dizziness. No lightheadedness. He tells me that his legs have been swollen, but he has had several hospitalizations because of alteration of electrolytes including one at [facility] previously. Records from [facility] have been reviewed. The patient was last seen at [facility] for lower extremity edema, felt to be secondary to lymphedema, and is on low-salt diet and was placed on metolazone. He is also hypertensive, diabetes mellitus with glomerular hyperfiltration, diabetic nephropathy, hyponatremia secondary to metolazone, hyperkalemia, and morbid obesity. The chart indicates also the patient to have sleep apnea, gout, hyperlipidemia, tear of knee meniscus, chronic pedal edema, previous history of pancreatitis, but that is malabsorption in Dr. Hickman's opinion. The patient has nonalcoholic fatty liver disease for many years with current abnormal liver function tests and possibly nonalcoholic steatohepatitis and he has enrolled the patient in some kind of a trial and the patient is being followed by Dr. Hickman for that. The chart indicates the past surgical history of appendectomy. FAMILY HISTORY: Sister with HCV. Social History: He quit smoking many years ago. Denies heavy alcohol. No drug use. He is in sales business. Review Of Systems: Gastrointestinal: He denies any nausea, vomiting, diarrhea, or constipation at this time. Genitourinary: Discomfort on urination. Pulmonary: Negative. Constitutional: Negative. Neurologic: Negative except for the fact that he was confused at the time of admission. PHYSICAL EXAMINATION: General: A morbidly obese elderly gentleman in no apparent respiratory distress. NECK: Supple. No jugular venous distention. LUNGS: Clear to auscultation and percussion. Cardiac: Regular rate and rhythm. No heaves, thrills, gallops, or rubs are noted. ABDOMEN: Soft and obese. Positive bowel sounds. Nontender. Extremities: There is 1+ edema of the lower extremities, but extremities are large. Neurologic: He is awake, alert, responsive, and in no apparent respiratory distress. Diagnostic Data: Laboratory Values: His white count at the time of admission was 27.6 and now 11.6, hemoglobin 11.2, and a platelet count of 264. Sodium is 132, potassium 3.9, chloride 96, bicarbonate 25, BUN of 10, creatinine 0.8, glucose of 140, calcium is 8.6, phosphorus of 2.0, magnesium of 1.5, total bilirubin of 0.2. of 6.8. ProBNP anywhere between 230 to 1000. Total protein is 6.1 and albumin 3.1. His folic acid was greater than 20. B12 was greater than 2000. TSH of 3.5. Total cholesterol of 161 with a LDL of 105. CRP of 28, down to 6.8 today. His urinalysis seemed to show 2 to 4 WBCs and 1+ occult blood. Toxicology screen is negative. The blood cultures showed E. coli in the urine. He also had Staphylococcus warneri on one slide and then strep species on the other. Apparently, blood culture and subsequent blood cultures have been negative. A chest x-ray was interstitial edema and heart failure. His echocardiogram shows ejection fraction of 55%, mild focal aortic sclerosis, adequate , thickened mitral valve leaflet, normal excursion, no significant valvular regurgitation, normal LV diastolic function and PA pressures. ASSESSMENT: 1. Bacteremia, two different kinds, felt to be possibly contaminant. 2. Urinary tract infection. 3. Encephalopathy at the time of admission and possibly related to an infection. 4. Non-alcoholic fatty liver disease that is what described by Dr. Mcclelland. 5. Electrolyte abnormality, secondary to diuretics. Plan: Dr. Lawson, this patient was seen in cardiac consultation. The echocardiogram, the final report, does not show any evidence of vegetation, there is no significant valvular regurgitations and the blood cultures are variable in terms of the readings, unlikely to be a true bacteremia and that the repeat blood cultures apparently were negative. The patient does clearly have some evidence of a urinary tract infection with E coli. The transthoracic echocardiogram shows no evidence of endocarditis on final review; it is, however, a technically difficult study as the patient does not seem to have any other sign of possible endocarditis, his temperature curves appeared to be normal, his white count is coming down, and I think the Infectious Disease doctor has felt that if there is no evidence of vegetation on the transthoracic echocardiogram, the patient will be discharged home with Augmentin. I would recommend that he follow up as outpatient once his antibiotic courses are finished to make sure, possibly to repeat the cultures again and he is more than welcome to follow up with me or with his primary care doctor whoever he likes to. I will explain those two findings with the patient. Geraldo Chery M.D. DR: MADELYN JOB#: [id number] CC:
--- NOTE | 2017-08-19 17:15 | Discharge Summary 2 SIG ---
DATE OF ADMISSION: 08/13/2017 DATE OF DISCHARGE: 08/17/2017 Reason For Admission: 67-year-old male with a history of hypertension, diabetes, and hyperlipidemia, was acting strange at home. Sister called the ambulance. The patient did not know when to drink water, did not know when to urinate, could not take care of himself. The patient upon arrival at ER, appeared alert and oriented. He denied chest pain, shortness of breath, abdominal pain, urinary complaints, headache, or rash. Workup in the emergency room revealed negative urine toxicology screen. Urinalysis was with possible evidence of urinary tract infection. WBC- 27.6 and hemoglobin and hematocrit were stable. Chest x-ray revealed no evidence of pneumonia. No focal neurological deficits , no meningismus signs to suggest meningitis. Blood and urine culture were obtained. The patient was started on empiric antibiotics. Potassium - 2.5 and sodium -126, potassium repleted. The patient declined EKG. The patient was admitted for further management. ADMITTING DIAGNOSES: 1. Altered level of consciousness. 2. Electrolyte abnormalities: hyponatremia and hypokalemia. 3. Possible sepsis. 4. Leukocytosis. 5. Possible aspiration pneumonia. 6. Possible urinary tract infection. Hospital Stay: The patient was admitted. ID consult was requested. The patient was started on empiric antibiotics. WBC was monitored closely. Initial urine culture revealed E. coli. Blood culture revealed Staph Warneri and Staph coagulase-negative. Another bottle of the blood culture revealed Strep mitis and staph coagulase-negative. Echocardiogram was done to rule out vegetation. No evidence of vegetation. Preserved ejection fraction of 55% and right ventricular systolic pressure of 10. According to the ID, blood culture were likely contaminated. Repeated blood culture on 08/15/2017 revealed no growth for 48 hours. ID cleared the patient for discharge on oral antibiotic for additional 10 days. Synchronous Motor Assembler closely followed the patient. Potassium was repleted in the emergency room and then further up in the floor. Sodium was treated with fluid restriction. Prior to discharge, potassium -3.9 and sodium -133. Hypomagnesemia and hypophosphatemia were addressed by executive candidate developer as well and corrected. Blood sugar was managed with the sliding scale of insulin. Hemoglobin A1c -6.3 at goal. Blood pressure was closely monitored, was stable. DVT prophylaxis provided. Lipid panel revealed slightly elevated LDL of 105. Statin was continued. The patient was counseled on low-fat low-cholesterol diet. Antitussive provided as needed. Supplemental oxygen provided as needed to keep saturation above 92%. Pulse oximetry was stable on room air. Synchronous Motor Assembler recommended to avoid nephrotoxics, gastrointestinal prophylaxis provided. The patient was continued on Flomax. Electrolytes all corrected. The patient prior to admission to the hospital was on Lasix, which likely caused electrolytes abnormalities. The patient was stable for discharge home. WBC- 11.6 prior to discharge. FINAL DIAGNOSES: 1. Acute encephalopathy, liekyl due to infectious process -resolved 2. Sepsis. 3. Urinary tract infection with Escherichia coli. 4. Electrolyte abnormalities: (hyponatremia, hypokalemia, hypomagnesemia, hypophosphatemia) - due to Lasix . 5. Leukocytosis, resolving. 6. Diabetes. 7. Hypertension. 8. Hypercholesteremia Discharge Instructions: The patient was discharged home. Follow up with the primary medical doctor. DISCHARGE MEDICATIONS: See medication reconciliation list. Octavio Lawson M.D. I have been assigned to dictate discharge summary on this account and I was not involved in the patient's management. Izzy CarterMaria Fareri Children'S HospitalKaiden NMigue DR: JERRY JOB#: [id number] CC: MAURICIO
--- NOTE | 2017-09-09 18:03 | Cardiology Report ---
APPROVED REPORT EKG Measurement Heart [id number] Sinus rhythm with 1st degree AV block Left axis deviation Nonspecific intraventricular block Cannot rule out Anterior infarct, age undetermined Abnormal ECG
== END 2017-08-17 15:36 | disposition home or self-care (01) | DRG 871 ==
LOC: EMR 21:10 → 4E 22:34 → EDBEDREQ 23:12 → 4E 08-14 00:24
DX: A41.9 Sepsis, unspecified organism (principal); J69.0 Pneumonitis due to inhalation of food and vomit; N39.0 Urinary tract infection, site not specified; E87.1 Hypo-osmolality and hyponatremia; K76.0 Fatty (change of) liver, not elsewhere classified; I10 Essential (primary) hypertension; B96.20 Unspecified Escherichia coli [E. coli] as the cause of diseases classified elsewhere; E11.9 Type 2 diabetes mellitus without complications; Z68.41 Body mass index [BMI] 40.0-44.9, adult; E87.6 Hypokalemia; E78.00 Pure hypercholesterolemia, unspecified; K21.9 Gastro-esophageal reflux disease without esophagitis; E66.01 Morbid (severe) obesity due to excess calories
CPT/HCPCS: 36415; 71010; 80053; 80061; 80202; 80300; 81003; 82550; 82553; 82607; 82728; 82746; 82962; 82977; 83036; 83690; 83735; 83880; 83935; 84100; 84300; 84443; 84484; 84550; 85007; 85025; 86140; 87040; 87086; 87181; 93005; 93306; 94664; 99285; C9399; J8499